=== PATIENT | female | born 1970 | race American Indian/Alaskan Native ===

== ENCOUNTER 2016-06-18 09:53 | Emergency (ER) | payer SELFPAY ==
[2016-06-18 10:03] VITALS: BP 110/73
--- NOTE | 2016-06-18 10:47 | XRay Report ---
LEFT HAND RADIOGRAPHS INDICATION: Left thumb pain and swelling. COMPARISON: None similar. FINDINGS: AP, lateral and oblique left hand radiographs demonstrate normal bones, joints and soft tissues. CONCLUSION: No acute radiographic abnormality. Thank you for the opportunity to participate in this patient's care.
--- NOTE | 2016-06-18 14:57 | Emergency Department Report ---
Entered by TELLO CHOPRA, acting as scribe for KEL GIORDANO PA. Chief Complaint: Fall Stated Complaint: R HAND THUMB PAIN FROM FALL Time Seen by Provider: 06/18/16 10:03 - HPI History of Present Illness: 46 y/o female presents with left thumb pain and abrasions to her right elbow/ left knee after slipping in the rain yesterday. Pt denies LOC or head trauma. Pt notes using icy rub last night with no relief. - ROS Review of Systems: as noted in HPI - Exam Vital Signs: Vital Signs 06/18/16 10:00 Temperature 98.4 F Pulse Rate 75 Respiratory 17 Rate Blood Pressure 110/73 O2 Sat by Pulse 99 Oximetry Physical Exam: General: 46 y/o female in no acute distress. Well-developed, well-nourished. CV: Regular rate and rhythm. No murmurs rubs or gallops. Lungs: Clear to auscultation bilaterally. Abdomen: No tenderness to palpation. No guarding or rebound tenderness. Normal bowel sounds. Mini Neuro: Alert and oriented 3. sensory function intact Musc: patient had tenderness with palpation of the left thumb, decreased ROM due to pain. MSE screening note: Focused history and physical exam performed. Due to findings the following was ordered: ED Medical Decision Making - Radiology Data Radiology results: report reviewed - Medical Decision Making patient was in NAD. x-ray shows no fracture or dislocation thumb spica was applied to the left hand. patient was given information to follow up with payroll and benefits specialist patient was discharged with a prescription for Ibuprofen and tramadol. Patient stated that she is not allergic to ibuprofen and takes it at home. - Differential Diagnosis thumb sprain, thumb fracture, fall ED Disposition for MSE Clinical Impression: Strain of left thumb Qualifiers: Encounter type: initial encounter Qualified Code(s): S66.912A - Strain of unspecified muscle, fascia and tendon at wrist and hand level, left hand, initial encounter Fall Qualifiers: Encounter type: initial encounter Qualified Code(s): W19.XXXA - Unspecified fall, initial encounter Disposition: DISCHARGED TO HOME OR SELFCARE Is pt being admited?: No Does the pt Need Aspirin: No Condition: Good Instructions: Finger Sprain (ED) Additional Instructions: TAKE IBUPROFEN 800MG EVERY 8 HOURS NEEDED FOR PAIN, TAKE TRAMADOL EVERY 6 HOURS NEEDED FOR SEVERE PAIN. Prescriptions: Ibuprofen [Motrin 800 MG tab] 800 mg PO Q8HR PRN #30 tablet PRN Reason: Pain traMADol [Ultram 50 MG tab] 50 mg PO Q6HR PRN #15 tablet PRN Reason: Pain Referrals: PRIMARY CARE,MD [Primary Care Provider] - 3-5 Days DEIRDRE DONOHUE MD [Staff Physician] - 3-5 Days This documentation as recorded by the NAV ryan RYAN,accurately reflects the service I personally performed and the decisions made by GIULIANA valdez FABIOLA N, PA.
== END 2016-06-18 12:18 | disposition home or self-care (01) ==
LOC: ED 09:53
DX: S66.912A Strain of unspecified muscle, fascia and tendon at wrist and hand level, left hand, initial encounter (principal); W01.0XXA Fall on same level from slipping, tripping and stumbling without subsequent striking against object, initial encounter; Y93.89 Activity, other specified; Y99.8 Other external cause status; Y92.89 Other specified places as the place of occurrence of the external cause

== ENCOUNTER 2017-05-31 17:27 | Emergency (ER) | payer SELFPAY ==
[2017-05-31 17:41] VITALS: BP 115/73
[2017-06-01] MEDS ORDERED: FLEXERIL PO ONE (01:16)
[2017-06-01] MEDS ORDERED: FLEXERIL ONE (01:17)
--- NOTE | 2017-06-01 01:43 | Emergency Department Report ---
ED Lower Extremity HPI - General Chief Complaint: Extremity Injury, Lower Stated Complaint: RIGHT LEG PAIN Source: patient, EMS Mode of arrival: Ambulatory Limitations: No Limitations - History of Present Illness Initial Comments: Patient sent from a 3 week she's been having right hip pain radiating down the right thigh. It is of moderate to severe intensity with no relieving factor and aggravated when she lies on the right side MD Complaint: other (right hip pain) Onset/Timin (weeks) -: Gradual Injury: Hip: Right Place: home Severity: moderate Worsens With: other (lying on the right side) - Related Data Previous Rx's Medication Instructions Recorded Last Taken Type Ibuprofen [Motrin 800 MG tab] 800 mg PO Q8HR PRN #30 tablet 06/18/16 Unknown Rx traMADol [Ultram 50 MG tab] 50 mg PO Q6HR PRN #15 tablet 06/18/16 Unknown Rx Cyclobenzaprine HCl [Flexeril 5 MG 5 mg PO TID #30 tab 06/01/17 Unknown Rx TAB] Allergies Allergy/AdvReac Type Severity Reaction Status Date / Time naproxen [From Naprosyn] Allergy Rash Verified 06/18/16 09:58 ED Review of Systems ROS: Stated complaint: RIGHT LEG PAIN Other details as noted in HPI Comment: All other systems reviewed and negative ED Past Medical Hx - Past Medical History Additional medical history: Vaginal delivery x 2 - Surgical History Additional Surgical History: Hardware in right leg and ankle. right knee surgery. TUBAL LIGATION - Social History Smoking Status: Never Smoker Substance Use Type: None - Medications Home Medications: Home Medications Medication Instructions Recorded Confirmed Last Taken Type Ibuprofen [Motrin 800 MG tab] 800 mg PO Q8HR PRN #30 tablet 06/18/16 Unknown Rx traMADol [Ultram 50 MG tab] 50 mg PO Q6HR PRN #15 tablet 06/18/16 Unknown Rx Cyclobenzaprine HCl [Flexeril 5 MG 5 mg PO TID #30 tab 06/01/17 Unknown Rx TAB] ED Physical Exam - General Limitations: No Limitations General appearance: alert, in no apparent distress - Head Head exam: Present: atraumatic, normocephalic - Eye Eye exam: Present: normal appearance - ENT ENT exam: Present: mucous membranes moist - Neck Neck exam: Present: normal inspection - Respiratory Respiratory exam: Present: normal lung sounds bilaterally. Absent: respiratory distress - Cardiovascular Cardiovascular Exam: Present: regular rate, normal rhythm. Absent: systolic murmur, diastolic murmur, rubs, gallop - GI/Abdominal GI/Abdominal exam: Present: soft, normal bowel sounds. Absent: tenderness - Rectal Rectal exam: Present: deferred - Extremities Exam Extremities exam: Present: normal inspection, other (ttp of the right hip) - Back Exam Back exam: Present: normal inspection - Neurological Exam Neurological exam: Present: alert, oriented X3 - Psychiatric Psychiatric exam: Present: normal affect, normal mood - Skin Skin exam: Present: warm, dry, intact, normal color. Absent: rash ED Course Vital Signs 05/31/17 17:39 Temperature 98 F Pulse Rate 65 Respiratory 18 Rate Blood Pressure 115/73 O2 Sat by Pulse 100 Oximetry Critical care attestation.: If time is entered above; I have spent that time in minutes in the direct care of this critically ill patient, excluding procedure time. ED Disposition Clinical Impression: Hip pain Disposition: - TO HOME OR SELFCARE Is pt being admited?: No Does the pt Need Aspirin: No Condition: Stable Instructions: Arthralgia (ED) Prescriptions: Cyclobenzaprine HCl [Flexeril 5 MG TAB] 5 mg PO TID #30 tab Referrals: PEDRITO WALDEN MD [Primary Care Provider] - 3-5 Days Time of Disposition: 01:44 Print Language: DIVEHI
== END 2017-06-01 01:58 | disposition home or self-care (01) ==
LOC: ED 17:27
DX: M25.551 Pain in right hip (principal); Z98.51 Tubal ligation status; Z88.6 Allergy status to analgesic agent
CPT/HCPCS: 99283

== ENCOUNTER 2017-09-02 10:01 | Emergency (ER) | payer SELFPAY ==
[2017-09-02] MEDS ORDERED: NORCO 5/325 PO ONE (13:06)
--- NOTE | 2017-09-02 13:06 | Emergency Department Report ---
ED Fall HPI - General Chief Complaint: Fall Stated Complaint: ARM/LEG PAIN Time Seen by Provider: 09/02/17 12:13 Source: patient, family Mode of arrival: Wheelchair - History of Present Illness Initial Comments: This is a 47-year-old female reports that she slipped and fell and injured her left hip and left elbow this morning. She is complaining of left arm and left hip pain. Pain is 9 out of 10 and achy. Worse with movement and better with rest. No medication taken prior to coming to the emergency room. Patient came to the emergency room via EMS. Denies any numbness or tingling to extremities. Denies any head injury or back injury. Denies any back pain, neck pain or headache. MD Complaint: fall, other (left hip and left elbow injury) -: This morning Fall From: standing When Fall Occurred: 1-3 hours [employer] FILL[employer] Fall Witnessed: yes, by bystander Place Fall Occurred: street Loss of Consciousness: none Prolonged Down Time?: no Symptoms Prior to Fall: none Location: pelvis (left hip pain) Location - Extremities: Left: Elbow (pain and present) Severity: severe Severity scale (0 -10): 9 Quality: aching Context: tripped/slipped Associated Symptoms: denies: headache, neck pain, numbness, weakness, chest paint, shortness of breath, abdominal pain, hematuria, unable to walk, lightheaded, vertigo, confusion - Related Data Previous Rx's Medication Instructions Recorded Last Taken Type Ibuprofen [Motrin 800 MG tab] 800 mg PO Q8HR PRN #30 tablet 06/18/16 Unknown Rx Cyclobenzaprine HCl [Flexeril 5 MG 5 mg PO TID #30 tab 06/01/17 Unknown Rx TAB] traMADol [Ultram 50 MG tab] 50 mg PO Q6HR PRN 12 Days #15 09/02/17 Unknown Rx tablet Allergies Allergy/AdvReac Type Severity Reaction Status Date / Time naproxen [From Naprosyn] Allergy Rash Verified 09/02/17 10:27 ED Review of Systems ROS: Stated complaint: ARM/LEG PAIN Other details as noted in HPI Constitutional: denies: chills, fever Eyes: denies: eye discharge ENT: denies: ear pain, throat pain Respiratory: denies: cough, shortness of breath, SOB with exertion, SOB at rest , wheezing Cardiovascular: denies: chest pain, palpitations, edema, syncope Gastrointestinal: denies: abdominal pain, nausea, vomiting, diarrhea Genitourinary: denies: urgency, dysuria, discharge Musculoskeletal: arthralgia. denies: back pain, joint swelling, myalgia Skin: rash (abrasion left elbow). denies: lesions Neurological: denies: headache, weakness, numbness, paresthesias, confusion, abnormal gait, vertigo ED Past Medical Hx - Past Medical History Previous Medical History?: No Additional medical history: Vaginal delivery x 2 - Surgical History Past Surgical History?: No Additional Surgical History: Hardware in right leg and ankle. right knee surgery. TUBAL LIGATION - Family History Family history: hypertension - Social History Smoking Status: Never Smoker Substance Use Type: None - Medications Home Medications: Home Medications Medication Instructions Recorded Confirmed Last Taken Type Ibuprofen [Motrin 800 MG tab] 800 mg PO Q8HR PRN #30 tablet 06/18/16 Unknown Rx Cyclobenzaprine HCl [Flexeril 5 MG 5 mg PO TID #30 tab 06/01/17 Unknown Rx TAB] traMADol [Ultram 50 MG tab] 50 mg PO Q6HR PRN 12 Days #15 09/02/17 Unknown Rx tablet ED Physical Exam - General Limitations: No Limitations General appearance: alert, in no apparent distress - Head Head exam: Present: atraumatic, normocephalic, normal inspection - Eye Eye exam: Present: normal appearance, PERRL, EOMI. Absent: nystagmus, periorbital swelling, periorbital tenderness Pupils: Present: normal accommodation - ENT ENT exam: Present: normal exam, normal orophraynx, mucous membranes moist, TM's normal bilaterally, normal external ear exam - Neck Neck exam: Present: normal inspection, full ROM. Absent: tenderness, lymphadenopathy - Respiratory Respiratory exam: Present: normal lung sounds bilaterally. Absent: respiratory distress, chest wall tenderness - Cardiovascular Cardiovascular Exam: Present: regular rate, normal rhythm, normal heart sounds. Absent: systolic murmur, diastolic murmur - GI/Abdominal GI/Abdominal exam: Present: soft, normal bowel sounds. Absent: distended, tenderness, guarding, rebound, rigid - Extremities Exam Extremities exam: Present: normal inspection, full ROM, normal capillary refill , other (no clubbing, cyanosis or edema. +2 pulses to all extremities and no neurovascular compromise.). Absent: tenderness, pedal edema, joint swelling, calf tenderness - Expanded Upper Extremity Exam Left General: Present: abrasion (left elbow). Absent: normal inspection Shoulder Exam: Present: normal inspection, full ROM. Absent: tenderness, swelling, abrasion, laceration, ecchymosis, deformity, crepidus, dislocation, erythema, tenderness over AC joint Upper Arm exam: Present: normal inspection, full ROM. Absent: tenderness, swelling, abrasion, laceration, ecchymosis, deformity, crepidus, dislocation, erythema Elbow exam: Present: normal inspection, full ROM (range of motion but reports pain with flexion and extension of elbow), tenderness (left elbow), abrasion ( abrasion to left elbow). Absent: swelling, laceration, ecchymosis, deformity, crepidus, dislocation, erythema, effusion, pain w/ pronation/supination, tenderness over radial head Forearm Wrist exam: Present: normal inspection, full ROM. Absent: tenderness, swelling, abrasion, laceration, ecchymosis, deformity, crepidus, dislocation, erythema, tenderness over anatomical snuff box, pain with axial thumb loading Hand Wrist exam: Present: normal inspection, full ROM. Absent: tenderness, swelling, abrasion, laceration, ecchymosis, deformity, crepidus, dislocation, erythema, amputation, nail avulsion, subungual hematoma Neuro motor exam: Present: wrist extension intact, thumb opposition intact, thumb IP flexion intact, thumb adduction intact, fingers 2-5 abduction intact Neurosensory exam: Present: 2-point discrimination, radial nerve intact, ulnar nerve intact, median nerve intact Vascular: Present: normal capillary refill, radial pulse, brachial pulse, ulnar pulse. Absent: vascular compromise, Pallo, pulse deficit radial art, pulse deficit ulnar art, pulse deficit brachial art - Back Exam Back exam: Present: normal inspection, full ROM, other (relates without any difficulties). Absent: tenderness, CVA tenderness (R), CVA tenderness (L), muscle spasm, paraspinal tenderness, vertebral tenderness, rash noted - Neurological Exam Neurological exam: Present: alert, oriented X3, normal gait, reflexes normal, other (no focal neurological deficits). Absent: motor sensory deficit - Psychiatric Psychiatric exam: Present: normal affect, normal mood - Skin Skin exam: Present: warm, dry, intact, normal color, abrasion (abrasion to left elbow) ED Course Vital Signs 09/02/17 09/02/17 10:27 13:11 Temperature 98.6 F Pulse Rate 72 Respiratory 18 16 Rate Blood Pressure 109/79 O2 Sat by Pulse 98 Oximetry - Reevaluation(s) Reevaluation #1: 09/02/17 14:59 Frederick 06/3251 tablets by mouth given in the emergency room for pain which controlled her pain. Tetanus vaccine is up-to-date per patient ED Medical Decision Making - Radiology Data Radiology results: report reviewed Left hip x-ray and Patient: ARIANNE RAI MR#: [id number] : 1970 Acct:[id number] Age/Sex: 47 / F ADM Date: 09/02/17 Loc: ED Attending Dr: Ordering Physician: MARILYN BOOKER Date of Service: 09/02/17 Procedure(s): XR hip 2-3V LT Accession Number(s): [id number] cc: MARILYN BOOKER Fluoro Time In Minutes: LEFT HIP, 2 views: History: Left hip pain after fall. The bony architecture is intact without evidence of fracture or dislocation. No significant soft tissue abnormality is seen. IMPRESSION: Normal left hip. Transcribed By: TTR Dictated By: ANTIONETTE WERNER JR, MD Electronically Authenticated By: ANTIONETTE WERNER JR, MD Signed Date/Time: 09/02/171357 DD/ 57 TD/TT: 09/02/178 Patient: ARIANNE RAI MR#: [id number] : 1970 Acct:[id number] Age/Sex: 47 / F ADM Date: 09/02/17 Loc: ED Attending Dr: Ordering Physician: MARILYN BOOKER Date of Service: 09/02/17 Procedure(s): XR hip 2-3V LT Accession Number(s): [id number] cc: MARILYN BOOKER Fluoro Time In Minutes: LEFT HIP, 2 views: History: Left hip pain after fall. The bony architecture is intact without evidence of fracture or dislocation. No significant soft tissue abnormality is seen. IMPRESSION: Normal left hip. Transcribed By: TTR Dictated By: ANTIONETTE WERNER JR, MD Electronically Authenticated By: ANTIONETTE WERNER JR, MD Signed Date/Time: 09/02/171357 DD/ 57 TD/TT: 09/02/171357 - Medical Decision Making This is a 47-year-old female here after falling accidentally. She is here to be seen after sustaining an injury to her left hip and left elbow left elbow abrasion. Tetanus vaccine is up-to-date. I saw and examined patient. She has a small abrasion to her left elbow. She is tender to palpate the left hip and left elbow with full range of motion to all extremities except she has pain with flexion and extension of her left elbow and active and passive range of motion of left hip. Patient had x-ray of left elbow and left hip which was dictated by radiologist and report reviewed by myself. X-ray of left hip and left elbow was normal. Patient tetanus vaccine is up-to-date and pain is controlled. I discussed x-ray report with patient and she voiced understanding. A/P 1:Accidental fall fall-she is stable 2: Arthralgia multiple sites-x-ray of left hip and left elbow negative findings. Patient given Percocet 5/325 2 tablets by mouth for relief of pain and will discharge home and Ultram 3: Abrasion left elbow-tetanus vaccine up-to-date. Neosporin ointment placed the site. Educated on Rice therapy, medication, x-ray report and diagnosis. She voiced understanding. Patient discharged home in stable condition. Vital signs are stable she is afebrile. She says she is feeling better and pain has resolved. Discharge home to follow up with her primary care physician in 2-3 days and if she does not have one to follow up at [facility] and she voiced understanding. discharged home a prescription for Ultram - Differential Diagnosis fracture, contusion, dislocation, MSK pain Critical care attestation.: If time is entered above; I have spent that time in minutes in the direct care of this critically ill patient, excluding procedure time. ED Disposition Clinical Impression: Arthralgia of multiple sites Accidental fall Qualifiers: Encounter type: initial encounter Qualified Code(s): W19.XXXA - Unspecified fall, initial encounter Abrasion of left elbow Qualifiers: Encounter type: initial encounter Qualified Code(s): S50.312A - Abrasion of left elbow, initial encounter Disposition: TO HOME OR SELFCARE Is pt being admited?: No Does the pt Need Aspirin: No Condition: Stable Instructions: Abrasion (ED), Fall Prevention (ED), Arthralgia (ED) Additional Instructions: Follow-up with primary care physician in 2-3 days Take Ultram for pain the patient not drive or operate heavy machinery while taking this medication as this causes drowsiness Prescriptions: traMADol [Ultram 50 MG tab] 50 mg PO Q6HR PRN 12 Days #15 tablet PRN Reason: Pain Referrals: PRIMARY CARE,MD [Primary Care Provider] - 2-3 Days [facility] [Outside] - 2-3 Days Forms: Work/School Release Form(ED)
--- NOTE | 2017-09-02 14:21 | XRay Report ---
LEFT ELBOW, 3 views: History: left elbow pain. The bony architecture is intact without evidence of fracture or dislocation. No significant soft tissue abnormality is seen. IMPRESSION: Normal left elbow.
--- NOTE | 2017-09-02 14:21 | XRay Report ---
LEFT HIP, 2 views: History: Left hip pain after fall. The bony architecture is intact without evidence of fracture or dislocation. No significant soft tissue abnormality is seen. IMPRESSION: Normal left hip.
[2017-09-02 15:27] VITALS: BP 122/64
== END 2017-09-02 15:23 | disposition home or self-care (01) ==
LOC: ED 10:01
DX: S50.312A Abrasion of left elbow, initial encounter (principal); M25.552 Pain in left hip; I10 Essential (primary) hypertension; Z98.51 Tubal ligation status; Z88.6 Allergy status to analgesic agent; W01.0XXA Fall on same level from slipping, tripping and stumbling without subsequent striking against object, initial encounter; Y93.89 Activity, other specified; Y99.8 Other external cause status; Y92.89 Other specified places as the place of occurrence of the external cause
CPT/HCPCS: 99283

== ENCOUNTER 2017-09-08 14:24 | Emergency (ER) | payer SELFPAY ==
[2017-09-08 15:18] VITALS: BP 117/79
--- NOTE | 2017-09-08 16:39 | XRay Report ---
FINAL REPORT PROCEDURE: XR MANDIBLE < 4V TECHNIQUE: Mandible complete, minimum of 4 views, including PA, lateral, [place], and both oblique projections. HISTORY: Trauma. Pain. Swelling. COMPARISON: No prior studies are available for comparison. FINDINGS: No fracture or radiopaque foreign body visualized. No dislocation is identified. Density appears normal. IMPRESSION: Negative exam. No fracture or dislocation visualized. If further evaluation is clinically indicated CT scan could be performed.
[2017-09-08] MEDS ORDERED: NACL 0.9% 1000 ML 1,000 ML IV ONE (21:10)
[2017-09-08] MEDS ORDERED: MORPHINE IV ONE (21:10)
[2017-09-08] MEDS ORDERED: CLEOCIN 600 MG/50 mL 600 MG/50 ML BAG IV ONE (21:12)
[2017-09-08 21:28] LABS: Basophils % (Auto) 0.2 % (0.0-1.8); Eosinophils % (Auto) 0.7 % (0.0-4.3); Hemoglobin 10.9 gm/dl (10.1-14.3); Lymphocytes # (Auto) 1.4 K/mm3 (1.2-5.4); Lymphocytes % (Auto) 21.9 % (13.4-35.0); Mean Corpuscular HGB Conc 33 % (30-34); Mean Corpuscular Hemoglobin 30 pg (28-32); Mean Corpuscular Volume 90 fl (79-97); Monocytes # (Auto) 0.6 K/mm3 (0.0-0.8); Monocytes % (Auto) 8.8 % (0.0-7.3); Platelet Count 235 K/mm3 (140-440); Red Blood Count 3.68 M/mm3 (3.65-5.03); Red Cell Distribution Width 14.3 % (13.2-15.2)
[2017-09-08 21:38] LABS: BUN/Creatinine Ratio 20; Blood Urea Nitrogen 10 mg/dL (7-17); Calcium 8.7 mg/dL (8.4-10.2); Hemolysis Index 19
[2017-09-08] MEDS ORDERED: BOOSTRIX IM ONE (23:21)
--- NOTE | 2017-09-08 23:23 | Emergency Department Report ---
<AKHIL BENITEZ - Last Filed: 09/08/17 23:19> ED ENT HPI - General Chief complaint: Dental/Oral Stated complaint: SWOLLEN JAW Time Seen by Provider: 09/08/17 20:33 Source: patient Mode of arrival: Ambulatory Limitations: No Limitations - History of Present Illness Initial comments: 47-year-old female presents with complaint of right upper lip pain and right facial pain. As per patient she was walking down a street were playing a game and ran into her accidentally. As per patient one of her right upper incisor was knocked out and she noticed blood coming out of her mouth. This occurred approximately 3 days ago per patient. Patient denies loss of consciousness states she was briefly dazed after incident. Denies sustaining any other injuries. Patient is currently awake alert and oriented 3 with visible swelling at the right lateral canthus of her lips. Some erythema surrounding this area noted. Patient states that when she touches the right side of her face is quite painful. MD complaint: tooth pain Onset/Timin -: days(s) Location: tooth # 1 - This tooth is missing Severity: moderate Severity scale (0 -10): 7 Quality: aching Consistency: constant Improves with: none Associated Symptoms: toothache - Related Data Previous Rx's Medication Instructions Recorded Last Taken Type Ibuprofen [Motrin 800 MG tab] 800 mg PO Q8HR PRN #30 tablet 06/18/16 Unknown Rx Cyclobenzaprine HCl [Flexeril 5 MG 5 mg PO TID #30 tab 06/01/17 Unknown Rx TAB] traMADol [Ultram 50 MG tab] 50 mg PO Q6HR PRN 12 Days #15 09/02/17 Unknown Rx tablet Chlorhexidine Mouthwash [Peridex] 15 ml MM BID #1 bottle 09/09/17 Unknown Rx Clindamycin [Clindamycin CAP] 300 mg PO Q6H #40 capsule 09/09/17 Unknown Rx traMADol [Ultram] 50 mg PO Q6HR PRN #15 tablet 09/09/17 Unknown Rx Allergies Allergy/AdvReac Type Severity Reaction Status Date / Time naproxen [From Naprosyn] Allergy Rash Verified 09/02/17 10:27 ED Dental HPI - General Chief complaint: Dental/Oral Stated complaint: SWOLLEN JAW Time Seen by Provider: 09/08/17 20:33 Source: patient Mode of arrival: Ambulatory Limitations: No Limitations - Related Data Previous Rx's Medication Instructions Recorded Last Taken Type Ibuprofen [Motrin 800 MG tab] 800 mg PO Q8HR PRN #30 tablet 06/18/16 Unknown Rx Cyclobenzaprine HCl [Flexeril 5 MG 5 mg PO TID #30 tab 06/01/17 Unknown Rx TAB] traMADol [Ultram 50 MG tab] 50 mg PO Q6HR PRN 12 Days #15 09/02/17 Unknown Rx tablet Chlorhexidine Mouthwash [Peridex] 15 ml MM BID #1 bottle 09/09/17 Unknown Rx Clindamycin [Clindamycin CAP] 300 mg PO Q6H #40 capsule 09/09/17 Unknown Rx traMADol [Ultram] 50 mg PO Q6HR PRN #15 tablet 09/09/17 Unknown Rx Allergies Allergy/AdvReac Type Severity Reaction Status Date / Time naproxen [From Naprosyn] Allergy Rash Verified 09/02/17 10:27 ED Review of Systems ROS: Stated complaint: SWOLLEN JAW Other details as noted in HPI Constitutional: denies: chills, fever Eyes: denies: eye pain, eye discharge, vision change ENT: as per HPI (facial pain and dental pain right upper mouth), dental pain. denies: ear pain, throat pain Respiratory: denies: cough, shortness of breath, wheezing Cardiovascular: denies: chest pain, palpitations Endocrine: no symptoms reported Gastrointestinal: denies: abdominal pain, nausea, diarrhea Genitourinary: denies: urgency, dysuria, discharge Musculoskeletal: denies: back pain, joint swelling, arthralgia Skin: denies: rash, lesions Neurological: denies: headache, weakness, paresthesias Psychiatric: denies: anxiety, depression Hematological/Lymphatic: denies: easy bleeding, easy bruising ED Past Medical Hx - Past Medical History Additional medical history: Vaginal delivery x 2 - Surgical History Additional Surgical History: Hardware in right leg and ankle. right knee surgery. TUBAL LIGATION - Social History Smoking Status: Never Smoker Substance Use Type: None - Medications Home Medications: Home Medications Medication Instructions Recorded Confirmed Last Taken Type Ibuprofen [Motrin 800 MG tab] 800 mg PO Q8HR PRN #30 tablet 06/18/16 Unknown Rx Cyclobenzaprine HCl [Flexeril 5 MG 5 mg PO TID #30 tab 06/01/17 Unknown Rx TAB] traMADol [Ultram 50 MG tab] 50 mg PO Q6HR PRN 12 Days #15 09/02/17 Unknown Rx tablet Chlorhexidine Mouthwash [Peridex] 15 ml MM BID #1 bottle 09/09/17 Unknown Rx Clindamycin [Clindamycin CAP] 300 mg PO Q6H #40 capsule 09/09/17 Unknown Rx traMADol [Ultram] 50 mg PO Q6HR PRN #15 tablet 09/09/17 Unknown Rx ED Physical Exam - General Limitations: No Limitations General appearance: alert, in no apparent distress - Expanded Head Exam Expanded Head exam: Present: contusion, general tenderness 1 - Tenderness and swelling here with surrounding erythema - Eye Eye exam: Present: normal appearance - ENT ENT exam: Present: mucous membranes moist - Expanded ENT Exam Expanded Teeth exam: Present: dental tenderness # 1 - Fractured 2 - Other (swelling and possible abscess here) - Neck Neck exam: Present: normal inspection - Respiratory Respiratory exam: Present: normal lung sounds bilaterally. Absent: respiratory distress - Cardiovascular Cardiovascular Exam: Present: regular rate, normal rhythm. Absent: systolic murmur, diastolic murmur, rubs, gallop - GI/Abdominal GI/Abdominal exam: Present: soft, normal bowel sounds - Extremities Exam Extremities exam: Present: normal inspection - Back Exam Back exam: Present: normal inspection - Neurological Exam Neurological exam: Present: alert, oriented X3 - Psychiatric Psychiatric exam: Present: normal affect, normal mood - Skin Skin exam: Present: warm, dry, intact, normal color. Absent: rash ED Course Vital Signs 09/08/17 15:12 Temperature 98.9 F Pulse Rate 82 Respiratory 16 Rate Blood Pressure 117/79 O2 Sat by Pulse 99 Oximetry ED Medical Decision Making - Lab Data Result diagrams: 09/08/17 21:19 09/08/17 21:19 - Medical Decision Making A/P: Facial cellulitis/abscess versus mandibular fracture, dental fracture 1-CT scan of face with contrast ordered to assess for abscess and jaw fracture 2-clindamycin 600 mg IV given, when necessary analgesics, nothing by mouth for now, IV fluid 3-pt signed out to МАРИЯ Agustin for f.u of CT and further management Critical care attestation.: If time is entered above; I have spent that time in minutes in the direct care of this critically ill patient, excluding procedure time. ED Disposition Clinical Impression: Infected dental carries, Dental abscess Disposition: DC-01 TO HOME OR SELFCARE Condition: Stable Instructions: Dental Abscess (ED), Dental Caries (ED) Prescriptions: Chlorhexidine Mouthwash [Peridex] 15 ml MM BID #1 bottle Clindamycin [Clindamycin CAP] 300 mg PO Q6H #40 capsule traMADol [Ultram] 50 mg PO Q6HR PRN #15 tablet PRN Reason: Pain Referrals: [facility] [Outside] - 3-5 Days Forms: Work/School Release Form(ED) <ELIOT AGUSTIN - Last Filed: 09/09/17 00:21> ED Medical Decision Making - Lab Data Result diagrams: 09/08/17 21:19 09/08/17 21:19 - Medical Decision Making Patient now refuses CT scan facial bone x-ray shows no fracture patient given clindamycin 600 IV and plan dc to home with clindamycin po, Peridex, mouth rinse , ultram prn pain pt will follow up with [facility] dental tomorrow, pt verbalized agreement and understanding of same. for dc to home in stable in stable condtion at this time ED Disposition Is pt being admited?: No Does the pt Need Aspirin: No Time of Disposition: 00:21
== END 2017-09-09 00:45 | disposition home or self-care (01) ==
LOC: ED 14:24
DX: K02.9 Dental caries, unspecified (principal); K04.7 Periapical abscess without sinus; Z98.51 Tubal ligation status; Z88.6 Allergy status to analgesic agent
CPT/HCPCS: 36415; 70100; 80048; 84703; 85025; 90471; 90715; 96365; 96366; 96375; 99285; J2270; J7030

== ENCOUNTER 2017-10-12 22:29 | Emergency (ER) | payer SELFPAY ==
[2017-10-12 22:57] LABS: Basophils % (Auto) 0.3 % (0.0-1.8); Eosinophils # (Auto) 0.1 K/mm3 (0.0-0.4); Eosinophils % (Auto) 1.2 % (0.0-4.3); Hemoglobin 11.2 gm/dl (10.1-14.3); Lymphocytes # (Auto) 1.3 K/mm3 (1.2-5.4); Lymphocytes % (Auto) 25.8 % (13.4-35.0); Mean Corpuscular HGB Conc 33 % (30-34); Mean Corpuscular Hemoglobin 29 pg (28-32); Mean Corpuscular Volume 88 fl (79-97); Monocytes # (Auto) 0.5 K/mm3 (0.0-0.8); Monocytes % (Auto) 9.6 % (0.0-7.3); Platelet Count 300 K/mm3 (140-440); Red Blood Count 3.86 M/mm3 (3.65-5.03); Red Cell Distribution Width 14.5 % (13.2-15.2)
[2017-10-12 23:42] LABS: BUN/Creatinine Ratio 21; Blood Urea Nitrogen 15 mg/dL (7-17); Calcium 9.1 mg/dL (8.4-10.2); Hemolysis Index 0
[2017-10-13 01:08] LABS: Bacteria,Urine 4+ /HPF (Negative); Bilirubin,Urine NEG (Negative); Blood,Urine LG (Negative); Color,Urine Yellow (Yellow); Mucus,Urine FEW /HPF; Protein,Urine <15 mg/dL mg/dL (Negative); Urobilinogen,Urine < 2.0 mg/dL (<2.0)
[2017-10-13 01:11] LABS: Amphetamine Screen,Urine PRESUMPTIVE NEGATIVE; Benzodiazepines Screen,Urine PRESUMPTIVE NEGATIVE; Cannabinoid Screen,Urine PRESUMPTIVE NEGATIVE; Cocaine Screen,Urine PRESUMPTIVE NEGATIVE; Methadone Screen,Urine PRESUMPTIVE NEGATIVE; Opiate Screen,Urine PRESUMPTIVE NEGATIVE
[2017-10-13] MEDS ORDERED: AMBIEN PO PRN (03:16)
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
[2017-10-13] MEDS ORDERED: TYLENOL ONE (14:36)
[2017-10-13] MEDS ORDERED: TYLENOL PO ONE (14:37)
[2017-10-13] MEDS: REMERON PO SCH (22:25)
--- NOTE | 2017-10-14 13:56 | Progress Note ---
Subjective - Reason for Consult Consult date: 10/14/17 Reason for consult: Psychiatry Follow-up - Chief Complaint Chief complaint: "Hello" 47-year-old female presenting with the chief complaint suicidal ideation. Today the patient is calm and cooperative during the assessment. She stated that she have done "some reflecting" reference her life and do feel like living is important. She stated that the medication "must be working." She denies SI/HI's and AVH's. She denies any side effects of her medication. Mental Status Exam - Vital signs Last Vital Signs Temp 98.6 F 10/14/17 10:00 Pulse 75 10/14/17 10:00 Resp 18 10/14/17 10:00 BP 104/74 10/14/17 10:00 Pulse Ox 100 10/14/17 10:00 - Exam Narrative exam: MSE: Appearance: calm, cooperative Behavior: regular eye contact Speech: regular rate and low tone Mood: "okay" Affect: congruent to mood Thought Process: intact Thought Content: denies SI/HI's and AVH's Motor Activity: lying in bed Cognition: A/O x 3 Insight: fair Judgment: fair Assessment and Plan Impression: MDD, Severe type. Today the patient is calm and cooperative during the assessment. UDS is negative. DDx: R/O Bipolar DO Recommendation/Plan: Reevaluate 1013 in 24 hours to determine proper dispo.. Continue Remeron 15 mg PO HS for depression. Discussed possible suicidality/ medication induced keaton with patient reference Remeron. Discussed generalized coping skills with the patient.
[2017-10-14] MEDS: REMERON PO SCH (22:13)
--- NOTE | 2017-10-15 14:35 | Progress Note ---
Subjective - Reason for Consult Consult date: 10/15/17 Reason for consult: Psychiatric Follow-up Evaluation - Chief Complaint Chief complaint: "Good" Patient is a 47-year-old female who presents with the chief complaint suicidal ideation. Today the patient is calm and cooperative during the assessment. She states, " I've been feeling okay. I talked to my daughter and grandchild last night. I think my depression was related to lack of communication. My phone was turned off. My mom paid to have my phone turned back on." She reports decrease depression. She endorses good sleep and appetite. She denies SI/HI, A/VH, and delusions. Patient is medication compliant. She denies any side effects of her medication. Mental Status Exam - Vital signs Last Vital Signs Temp 98.7 F 10/15/17 10:00 Pulse 87 10/15/17 10:00 Resp 18 10/15/17 10:00 BP 111/70 10/15/17 10:00 Pulse Ox 100 10/15/17 10:00 - Exam Narrative exam: Mental Status Exam General Appearance: Causally Dressed-hospital gown Eye Contact: Intermiittent Orientation: Alert and oriented x 4 (person, place, time, situation) Attitude/Behavior: Cooperative Sensorium: Clear Psychomotor & Musculoskeletal Activity: Ambulatory Mood: "Okay" Anxious. Affect: Congruent with mood Speech/Language: Normal rate and tone Thought Processes: Circumstantial Thought Content: Reality oriented. Impoverished Perception: Pt denies A/V/T hallucinations Concentration/Attention: Impaired Suicidal Ideations/Plan: Patient denies. Homicidal Ideations/Plan: Patient denies. Judgment: Fair Insight: Fair Assessment and Plan Impression: MDD, Severe type. Today the patient is calm and cooperative during the assessment. UDS is negative. Patient denies SI/HI, A/VH, and delusions. DDx: R/O Bipolar DO Recommendation/Plan: 1. Will reevaluate 1013 in 24 hours to determine proper dispo. 2. Continue Remeron 15 mg PO HS for depression. Discussed possible suicidality/ medication induced keaton with patient reference Remeron. Discussed generalized coping skills with the patient. 3. Will monitor mood, sleep, appetite, compliance, and side effects.
[2017-10-15] MEDS: REMERON PO SCH (22:38)
--- NOTE | 2017-10-16 11:47 | Progress Note ---
Subjective - Reason for Consult Consult date: 10/16/17 Reason for consult: Psychiatry Follow-up - Chief Complaint Chief complaint: "How are you" Patient is a 47-year-old female who presents with the chief complaint suicidal ideation. Today the patient is calm and cooperative during the assessment. She stated that she feel better "mentally." She stated that she talked with her family last night and look forward to being discharged. She stated that she plan to follow up with outpatient psy services. She denies SI/HI's and AVH's. She denies any side effects of her medication. Mental Status Exam - Vital signs Last Vital Signs Temp 98.6 F 10/15/17 21:00 Pulse 70 10/15/17 21:00 Resp 18 10/15/17 21:00 BP 108/73 10/15/17 21:00 Pulse Ox 100 10/15/17 21:00 - Exam Narrative exam: MSE: Appearance: calm, cooperative Behavior: regular eye contact Speech: regular rate and low tone Mood: "okay" Affect: congruent to mood Thought Process: intact Thought Content: denies SI/HI's and AVH's Motor Activity: lying in bed Cognition: A/O x 3 Insight: appropriate Judgment: appropriate Assessment and Plan Impression: MDD, Severe type. Today the patient is calm and cooperative during the assessment. UDS is negative. The patient is no threat to self. DDx: R/O Bipolar DO Recommendation/Plan: Rescind 1013. Continue Remeron 15 mg PO HS for depression. Discussed possible suicidality/medication induced keaton with patient reference Remeron. Discussed generalized coping skills with the patient. The patient can follow up with [facility].
[2017-10-16 12:14] VITALS: BP 104/72
== END 2017-10-16 15:43 | disposition home or self-care (01) ==
LOC: ED 22:29 → EEVIPCON 22:29 → ED 10-16 15:43
DX: R45.851 Suicidal ideations (principal); F32.9 Major depressive disorder, single episode, unspecified; Z98.51 Tubal ligation status
CPT/HCPCS: 36415; 80048; 80307; 81001; 85025; 99284; G0480; 80320; 99285

== ENCOUNTER 2018-02-18 18:23 | Emergency (ER) | payer SELFPAY ==
[2018-02-18 18:32] VITALS: BP 117/70
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
[2018-02-18] MEDS ORDERED: TORADOL IM ONE (21:52)
--- NOTE | 2018-02-18 22:35 | XRay Report ---
FINAL REPORT EXAM: XR SCAPULA RT HISTORY: right scapular pain TECHNIQUE: AP and lateral views of the right scapula PRIORS: None. FINDINGS: There is no evidence for acute fracture or dislocation. No soft tissue swelling or radiopaque foreign bodies are seen. Bony mineralization is normal and joint spaces are maintained. IMPRESSION: No acute bony or soft tissue abnormality noted.
== END 2018-02-18 21:58 | disposition home or self-care (01) ==
LOC: ED 18:23
DX: S20.221A Contusion of right back wall of thorax, initial encounter (principal); G43.909 Migraine, unspecified, not intractable, without status migrainosus; F32.9 Major depressive disorder, single episode, unspecified; X58.XXXA Exposure to other specified factors, initial encounter; Y93.89 Activity, other specified; Y92.89 Other specified places as the place of occurrence of the external cause; Y99.8 Other external cause status
CPT/HCPCS: 73010; 96372; 99283; J1885

== ENCOUNTER 2018-02-26 15:44 | Emergency (ER) | payer SELFPAY ==
--- NOTE | 2018-02-26 20:33 | Emergency Department Report ---
- General Chief Complaint: Wound/Laceration Stated Complaint: BLEEDING BELLY BUTTON/SMELLY Time Seen by Provider: 02/26/18 20:13 Source: patient Mode of arrival: Ambulatory Limitations: No Limitations - History of Present Illness Initial Comments: 47-year-old -O[place]i female to emergency Department complaining of a wound to her belly button which she was seen for 1-2 weeks ago and treated with oral medication. Advised to return to the department should she progression of the symptoms or any discharge. She states that she has developed some mild drainage from the wound with occasional blood-tinged sensation elbow. She has been picking at. She also tenderness present. Reports no abdominal pain, no nausea, vomiting, no diarrhea, fever, chills, sweats, chest pain, -: Gradual Location: abdomen Place: home Patient Tetanus UTD: No Context: accidental Associated Symptoms: none. denies: suspect foreign body present, unable to move injured part, nausea/vomiting, fever - Related Data Previous Rx's Medication Instructions Recorded Last Taken Type Ibuprofen [Motrin 800 MG tab] 800 mg PO Q8HR PRN #30 tablet 06/18/16 Unknown Rx traMADol [Ultram 50 MG tab] 50 mg PO Q6HR PRN 12 Days #15 09/02/17 Unknown Rx tablet Chlorhexidine Mouthwash [Peridex] 15 ml MM BID #1 bottle 09/09/17 Unknown Rx Clindamycin [Clindamycin CAP] 300 mg PO Q6H #40 capsule 09/09/17 Unknown Rx traMADol [Ultram] 50 mg PO Q6HR PRN #15 tablet 09/09/17 Unknown Rx Tizanidine HCl [Zanaflex] 4 mg PO TID PRN #12 capsule 09/25/17 Unknown Rx traMADol [Ultram 50 MG tab] 50 mg PO Q4HR PRN #12 tablet 09/25/17 Unknown Rx Ibuprofen [Motrin 600 MG tab] 600 mg PO Q8H PRN #15 tablet 11/25/17 Unknown Rx Butalb/Acetaminophen/Caffeine 1 cap PO Q6HR PRN #15 cap 11/29/17 Unknown Rx [Fioricet 50-300-40 mg CAP] Methocarbamol [Robaxin-750] 750 mg PO TID #20 tablet 01/11/18 Unknown Rx predniSONE [Deltasone] 20 mg PO QDAY #7 tab 01/11/18 Unknown Rx Cyclobenzaprine [Flexeril 10mg] 10 mg PO Q12H PRN #14 tablet 01/19/18 Unknown Rx cephALEXin [Keflex] 500 mg PO Q8HR 7 Days #14 cap 01/19/18 Unknown Rx traMADol [Ultram 50 MG tab] 50 mg PO Q6HR PRN #20 tablet 01/19/18 Unknown Rx Acetaminophen [Tylenol Extra 1,000 mg PO QID PRN #60 tablet 01/26/18 Unknown Rx Strength] Diclofenac Sodium [Voltaren] 1 applicatio TP TID PRN #1 tube 01/26/18 Unknown Rx Cyclobenzaprine [Flexeril 10 MG 10 mg PO TID PRN #10 tablet 02/18/18 Unknown Rx TAB] Acetaminophen [Tylenol Extra 1,000 mg PO QID PRN #30 tablet 02/22/18 Unknown Rx Strength] Cephalexin [Keflex] 500 mg PO TID 10 Days #30 capsule 02/22/18 Unknown Rx Chlorhexidine Gluconate [Hibiclens] 10 ml TP BID #240 liquid 02/26/18 Unknown Rx Clotrimazole/Betamethasone Dip 1 applicatio TP BID #1 cream..g. 02/26/18 Unknown Rx [Lotrisone Cream] cephALEXin [Keflex] 500 mg PO Q6HR #40 capsule 02/26/18 Unknown Rx Allergies Allergy/AdvReac Type Severity Reaction Status Date / Time naproxen [From Naprosyn] Allergy Rash Verified 01/11/18 10:47 ED Review of Systems ROS: Stated complaint: BLEEDING BELLY BUTTON/SMELLY Other details as noted in HPI Constitutional: denies: chills, fever Eyes: denies: eye pain, eye discharge, vision change ENT: denies: ear pain, throat pain Respiratory: denies: cough, shortness of breath, wheezing Cardiovascular: denies: chest pain, palpitations Endocrine: no symptoms reported Gastrointestinal: denies: abdominal pain, nausea, diarrhea Genitourinary: denies: urgency, dysuria, discharge Musculoskeletal: denies: back pain, joint swelling, arthralgia Skin: change in color. denies: rash, lesions Neurological: denies: headache, weakness, paresthesias Psychiatric: denies: anxiety, depression Hematological/Lymphatic: denies: easy bleeding, easy bruising ED Past Medical Hx - Past Medical History Previous Medical History?: Yes Hx Headaches / Migraines: Yes Hx Psychiatric Treatment: Yes (depression) Additional medical history: Lower back pain with radiation - Surgical History Past Surgical History?: Yes Additional Surgical History: Hardware in right leg and ankle. right knee surgery. TUBAL LIGATION - Social History Smoking Status: Never Smoker Substance Use Type: None - Medications Home Medications: Home Medications Medication Instructions Recorded Confirmed Last Taken Type Ibuprofen [Motrin 800 MG tab] 800 mg PO Q8HR PRN #30 tablet 06/18/16 Unknown Rx traMADol [Ultram 50 MG tab] 50 mg PO Q6HR PRN 12 Days #15 09/02/17 Unknown Rx tablet Chlorhexidine Mouthwash [Peridex] 15 ml MM BID #1 bottle 09/09/17 Unknown Rx Clindamycin [Clindamycin CAP] 300 mg PO Q6H #40 capsule 09/09/17 Unknown Rx traMADol [Ultram] 50 mg PO Q6HR PRN #15 tablet 09/09/17 Unknown Rx Tizanidine HCl [Zanaflex] 4 mg PO TID PRN #12 capsule 09/25/17 Unknown Rx traMADol [Ultram 50 MG tab] 50 mg PO Q4HR PRN #12 tablet 09/25/17 Unknown Rx Ibuprofen [Motrin 600 MG tab] 600 mg PO Q8H PRN #15 tablet 11/25/17 Unknown Rx Butalb/Acetaminophen/Caffeine 1 cap PO Q6HR PRN #15 cap 11/29/17 Unknown Rx [Fioricet 50-300-40 mg CAP] Methocarbamol [Robaxin-750] 750 mg PO TID #20 tablet 01/11/18 Unknown Rx predniSONE [Deltasone] 20 mg PO QDAY #7 tab 01/11/18 Unknown Rx Cyclobenzaprine [Flexeril 10mg] 10 mg PO Q12H PRN #14 tablet 01/19/18 Unknown Rx cephALEXin [Keflex] 500 mg PO Q8HR 7 Days #14 cap 01/19/18 Unknown Rx traMADol [Ultram 50 MG tab] 50 mg PO Q6HR PRN #20 tablet 01/19/18 Unknown Rx Acetaminophen [Tylenol Extra 1,000 mg PO QID PRN #60 tablet 01/26/18 Unknown Rx Strength] Diclofenac Sodium [Voltaren] 1 applicatio TP TID PRN #1 tube 01/26/18 Unknown Rx Cyclobenzaprine [Flexeril 10 MG 10 mg PO TID PRN #10 tablet 02/18/18 Unknown Rx TAB] Acetaminophen [Tylenol Extra 1,000 mg PO QID PRN #30 tablet 02/22/18 Unknown Rx Strength] Cephalexin [Keflex] 500 mg PO TID 10 Days #30 capsule 02/22/18 Unknown Rx Chlorhexidine Gluconate [Hibiclens] 10 ml TP BID #240 liquid 02/26/18 Unknown Rx Clotrimazole/Betamethasone Dip 1 applicatio TP BID #1 cream..g. 02/26/18 Unknown Rx [Lotrisone Cream] cephALEXin [Keflex] 500 mg PO Q6HR #40 capsule 02/26/18 Unknown Rx ED Physical Exam - General Limitations: No Limitations General appearance: alert, in no apparent distress - Head Head exam: Present: atraumatic, normocephalic - Eye Eye exam: Present: normal appearance - ENT ENT exam: Present: mucous membranes moist - Neck Neck exam: Present: normal inspection - Respiratory Respiratory exam: Present: normal lung sounds bilaterally. Absent: respiratory distress - Cardiovascular Cardiovascular Exam: Present: regular rate, normal rhythm. Absent: systolic murmur, diastolic murmur, rubs, gallop - GI/Abdominal GI/Abdominal exam: Present: soft, normal bowel sounds, other (hyperpigmented, scaly rash to the naval region with cracked fissures in the naval can avidly. There is scant serous fluid discharge. No pus is appreciated. No bleeding is appreciated. No induration or swelling around the umbilicus region. No suprapubic pain. No lymphangitis. No inguinal Lymphadenopathy). Absent: distended, hypoactive bowel sounds - Extremities Exam Extremities exam: Present: normal inspection - Back Exam Back exam: Present: normal inspection - Neurological Exam Neurological exam: Present: alert, oriented X3 - Psychiatric Psychiatric exam: Present: normal affect, normal mood - Skin Skin exam: Present: warm, dry, intact, normal color. Absent: rash ED Course Vital Signs 02/26/18 15:49 Temperature 97.6 F Pulse Rate 76 Respiratory 16 Rate Blood Pressure 117/75 O2 Sat by Pulse 100 Oximetry ED Medical Decision Making - Medical Decision Making Rashes of as a thickened fungal presentation with some secondary his skin fissures likely some early secondary infection. No active cellulitis. Plan is to follow fungal origin clean the wound well with some anti-microbial soaps and oriented robotics and have her follow-up with [facility] primary care doctor every 3 days for wound reevaluation. Patient has been been actively picking at the wound off and on, which may have been the nidus for the initial rheumatoid versus infectious presentation - Differential Diagnosis early cellulitis, early abscess, fungal infection, infection, inflammatory Critical care attestation.: If time is entered above; I have spent that time in minutes in the direct care of this critically ill patient, excluding procedure time. ED Disposition Clinical Impression: Open wound of umbilical region Disposition: DC-01 TO HOME OR SELFCARE Is pt being admited?: No Does the pt Need Aspirin: No Condition: Stable Referrals: PRIMARY CARE, [Primary Care Provider] - 3-5 Days
== END 2018-02-26 21:19 | disposition home or self-care (01) ==
LOC: ED 15:44

== ENCOUNTER 2018-03-26 11:07 | Emergency (ER) | payer OTHER ==
[2018-03-26 11:23] VITALS: BP 102/56
--- NOTE | 2018-03-26 11:23 | Emergency Department Report ---
Blank Doc - Documentation Documentation: 48-year-old female that presents with right index finger pain s/p jamming it. Patient denies any other complaints. Will order xray Patient sent to [facility] for further evaluation and treatment.
--- NOTE | 2018-03-26 11:49 | XRay Report ---
RIGHT HAND, 3 views: History: Pain. No acute osseous injury or joint pathology is detected. Chronic healed fracture of the fourth metacarpal shaft is suspected. The soft tissues are unremarkable. IMPRESSION: No acute process. Chronic, healed fourth metacarpal fracture.
--- NOTE | 2018-03-26 12:21 | Emergency Department Report ---
ED Back Pain/Injury HPI - General Chief Complaint: Extremity Injury, Upper Stated Complaint: RT FINGER INJURY Time Seen by Provider: 03/26/18 11:24 Source: patient Limitations: No Limitations - History of Present Illness Initial Comments: Patient is a 48-year-old, -[place]inamese female who jammed her finger 3 days ago. He does continue to hurt so she came in today to make sure it is not fractured. -: Sudden Worsens With: movement Associated Symptoms: denies other symptoms - Related Data Previous Rx's Medication Instructions Recorded Last Taken Type Ibuprofen [Motrin 800 MG tab] 800 mg PO Q8HR PRN #30 tablet 06/18/16 Unknown Rx traMADol [Ultram 50 MG tab] 50 mg PO Q6HR PRN 12 Days #15 09/02/17 Unknown Rx tablet Chlorhexidine Mouthwash [Peridex] 15 ml MM BID #1 bottle 09/09/17 Unknown Rx Clindamycin [Clindamycin CAP] 300 mg PO Q6H #40 capsule 09/09/17 Unknown Rx traMADol [Ultram] 50 mg PO Q6HR PRN #15 tablet 09/09/17 Unknown Rx Tizanidine HCl [Zanaflex] 4 mg PO TID PRN #12 capsule 09/25/17 Unknown Rx traMADol [Ultram 50 MG tab] 50 mg PO Q4HR PRN #12 tablet 09/25/17 Unknown Rx Ibuprofen [Motrin 600 MG tab] 600 mg PO Q8H PRN #15 tablet 11/25/17 Unknown Rx Butalb/Acetaminophen/Caffeine 1 cap PO Q6HR PRN #15 cap 11/29/17 Unknown Rx [Fioricet 50-300-40 mg CAP] Methocarbamol [Robaxin-750] 750 mg PO TID #20 tablet 01/11/18 Unknown Rx predniSONE [Deltasone] 20 mg PO QDAY #7 tab 01/11/18 Unknown Rx Cyclobenzaprine [Flexeril 10mg] 10 mg PO Q12H PRN #14 tablet 01/19/18 Unknown Rx cephALEXin [Keflex] 500 mg PO Q8HR 7 Days #14 cap 01/19/18 Unknown Rx traMADol [Ultram 50 MG tab] 50 mg PO Q6HR PRN #20 tablet 01/19/18 Unknown Rx Acetaminophen [Tylenol Extra 1,000 mg PO QID PRN #60 tablet 01/26/18 Unknown Rx Strength] Diclofenac Sodium [Voltaren] 1 applicatio TP TID PRN #1 tube 01/26/18 Unknown Rx Cyclobenzaprine [Flexeril 10 MG 10 mg PO TID PRN #10 tablet 02/18/18 Unknown Rx TAB] Acetaminophen [Tylenol Extra 1,000 mg PO QID PRN #30 tablet 02/22/18 Unknown Rx Strength] Cephalexin [Keflex] 500 mg PO TID 10 Days #30 capsule 02/22/18 Unknown Rx Chlorhexidine Gluconate [Hibiclens] 10 ml TP BID #240 liquid 02/26/18 Unknown Rx Clotrimazole/Betamethasone Dip 1 applicatio TP BID #1 cream..g. 02/26/18 Unknown Rx [Lotrisone Cream] cephALEXin [Keflex] 500 mg PO Q6HR #40 capsule 02/26/18 Unknown Rx Allergies Allergy/AdvReac Type Severity Reaction Status Date / Time naproxen [From Naprosyn] Allergy Rash Verified 03/26/18 11:09 ED Review of Systems ROS: Stated complaint: RT FINGER INJURY Other details as noted in HPI Comment: All other systems reviewed and negative Constitutional: denies: no symptoms reported ENT: denies: throat pain Cardiovascular: denies: dyspnea on exertion Endocrine: denies: flushing Gastrointestinal: denies: abdominal pain Musculoskeletal: as per HPI, other (finger pain) Skin: denies: rash Neurological: denies: as per HPI Psychiatric: denies: depression Hematological/Lymphatic: denies: easy bleeding ED Past Medical Hx - Past Medical History Medical history: no medical history Lower back pain with radiation Surgical history: bilateral tubal ligation, other (ankle and leg surgery, right) LEISURE STUDIES PROFESSOR history: no LEISURE STUDIES PROFESSOR history Family history: no significant family history - Social History Alcohol use: none Drug use: none ED Back Pain Physical Exam - Exam General: Vital signs noted. No distress. Alert and acting appropriately. There is no contusion laceration or abrasion. Patient has full range of motion. Rapid capillary refill. Radial and ulnar pulses intact. X-ray negative for fracture. Will send patient home with conservative treatment. Back/Abdomen: No Abdominal Tenderness, No Perithoracic Tenderness, No Perilumbar Tenderness, No Sacroiliac Tenderness, No Flank Tenderness, No Straight Leg Raise Pain Neuro: Yes Normal Sensation, Yes Normal DTR's, Yes Normal Gait, No Motor Weakness ED Course Vital Signs 03/26/18 11:22 Temperature 97.9 F Pulse Rate 72 Respiratory 18 Rate Blood Pressure 102/56 O2 Sat by Pulse 100 Oximetry ED Medical Decision Making - Radiology Data Radiology results: report reviewed, image reviewed nap - Medical Decision Making There is no contusion laceration or abrasion. Patient has full range of motion. Rapid capillary refill. Radial and ulnar pulses intact. X-ray negative for fracture. Will send patient home with conservative treatment. - Differential Diagnosis ro fx Critical care attestation.: If time is entered above; I have spent that time in minutes in the direct care of this critically ill patient, excluding procedure time. ED Disposition Clinical Impression: Contusion Disposition: DC-01 TO HOME OR SELFCARE Is pt being admited?: No Does the pt Need Aspirin: No Condition: Stable Instructions: Contusion in Adults (ED) Additional Instructions: ice rest elevate motrin for pain xray neg for fracture Referrals: JADON JAVIER MD [Staff Physician] - 3-5 Days Time of Disposition: 12:18
== END 2018-03-26 14:11 | disposition home or self-care (01) ==
LOC: ED 11:07
DX: S60.041A Contusion of right ring finger without damage to nail, initial encounter (principal); X58.XXXA Exposure to other specified factors, initial encounter; Y93.89 Activity, other specified; Y99.8 Other external cause status; Y92.89 Other specified places as the place of occurrence of the external cause
CPT/HCPCS: 99281; 99282

== ENCOUNTER 2019-03-14 16:19 | Emergency (ER) | payer SELFPAY ==
--- NOTE | 2019-03-14 17:10 | Emergency Department Report ---
Blank Doc - Documentation Documentation: 49-year-old female that presents with vaginal discharge and pelvic pain. This initial assessment/diagnostic orders/clinical plan/treatment(s) is/are subject to change based on patient's health status, clinical progression and re- assessment by fellow clinical providers in the ED. Further treatment and workup at subsequent clinical providers discretion. Patient/guardians urged not to elope from the ED as their condition may be serious if not clinically assessed and managed. Initial orders include: 1- Patient sent to [facility] for further evaluation and treatment 2- UA 3- pelvic exam to be done
[2019-03-14 17:47] LABS: HCG Qualitative,Urine Negative (Negative)
[2019-03-14 18:20] LABS: Basophils % (Auto) 0.6 % (0.0-1.8); Eosinophils # (Auto) 0.2 K/mm3 (0.0-0.4); Eosinophils % (Auto) 3.1 % (0.0-4.3); Hematocrit 34.9 % (30.3-42.9); Hemoglobin 11.6 gm/dl (10.1-14.3); Lymphocytes # (Auto) 1.4 K/mm3 (1.2-5.4); Lymphocytes % (Auto) 20.8 % (13.4-35.0); Mean Corpuscular HGB Conc 33 % (30-34); Mean Corpuscular Volume 89 fl (79-97); Monocytes # (Auto) 0.6 K/mm3 (0.0-0.8); Monocytes % (Auto) 8.4 % (0.0-7.3); Platelet Count 282 K/mm3 (140-440); Red Blood Count 3.94 M/mm3 (3.65-5.03); Red Cell Distribution Width 13.7 % (13.2-15.2)
[2019-03-14 20:43] LABS: Bilirubin,Urine NEG (Negative); Blood,Urine NEG (Negative); Color,Urine Straw (Yellow); Mucus,Urine FEW /HPF; Protein,Urine <15 mg/dL mg/dL (Negative); Urobilinogen,Urine < 2.0 mg/dL (<2.0)
--- NOTE | 2019-03-14 20:48 | XRay Report ---
CHEST 2 VIEWS 2032 INDICATION / CLINICAL INFORMATION: cough and chest pain COMPARISON: None available. FINDINGS: SUPPORT DEVICES: None. HEART / MEDIASTINUM: No significant abnormality. LUNGS / PLEURA: There appears to be partial eventration of both hemidiaphragms. I believe this accoun ts for the density in the left posterior lung base. No areas of consolidation are seen. No pneumothor ax. ADDITIONAL FINDINGS: No significant additional findings. IMPRESSION: No significant acute abnormality Signer Name: Jovanny Ferrari MD Signed: 03/14/2019 8:44 PM Workstation Name: [id number]
--- NOTE | 2019-03-14 21:32 | Emergency Department Report ---
ED General Adult HPI - General Chief complaint: Urogenital-Female Stated complaint: PINK EYE/COUGHING/KIDNEY INFEC Time Seen by Provider: 03/14/19 17:10 Source: patient Mode of arrival: Ambulatory Limitations: No Limitations - Related Data Previous Rx's Medication Instructions Recorded Last Taken Type Ibuprofen [Motrin 800 MG tab] 800 mg PO Q8HR PRN #30 tablet 06/18/16 Unknown Rx traMADoL [Ultram 50 MG tab] 50 mg PO Q6HR PRN 12 Days #15 09/02/17 Unknown Rx tablet Chlorhexidine Mouthwash [Peridex] 15 ml MM BID #1 bottle 09/09/17 Unknown Rx Clindamycin [Clindamycin CAP] 300 mg PO Q6H #40 capsule 09/09/17 Unknown Rx traMADoL [Ultram] 50 mg PO Q6HR PRN #15 tablet 09/09/17 Unknown Rx Tizanidine HCl [Zanaflex 4mg CAP] 4 mg PO TID PRN #12 capsule 09/25/17 Unknown Rx traMADoL [Ultram 50 MG tab] 50 mg PO Q4HR PRN #12 tablet 09/25/17 Unknown Rx Ibuprofen [Motrin 600 MG tab] 600 mg PO Q8H PRN #15 tablet 11/25/17 Unknown Rx Butalb/Acetaminophen/Caffeine 1 cap PO Q6HR PRN #15 cap 11/29/17 Unknown Rx [Fioricet 50-300-40 mg CAP] Methocarbamol [Robaxin-750] 750 mg PO TID #20 tablet 01/11/18 Unknown Rx predniSONE [Deltasone] 20 mg PO QDAY #7 tab 01/11/18 Unknown Rx Cyclobenzaprine [Flexeril 10mg] 10 mg PO Q12H PRN #14 tablet 01/19/18 Unknown Rx cephALEXin [Keflex] 500 mg PO Q8HR 7 Days #14 cap 01/19/18 Unknown Rx traMADoL [Ultram 50 MG tab] 50 mg PO Q6HR PRN #20 tablet 01/19/18 Unknown Rx Acetaminophen [Tylenol Extra 1,000 mg PO QID PRN #60 tablet 01/26/18 Unknown Rx Strength] Diclofenac Sodium [Voltaren] 1 applicatio TP TID PRN #1 tube 01/26/18 Unknown Rx Cyclobenzaprine [Flexeril 10 MG 10 mg PO TID PRN #10 tablet 02/18/18 Unknown Rx TAB] Acetaminophen [Tylenol Extra 1,000 mg PO QID PRN #30 tablet 02/22/18 Unknown Rx Strength] Cephalexin [Keflex] 500 mg PO TID 10 Days #30 capsule 02/22/18 Unknown Rx Chlorhexidine Gluconate [Hibiclens] 10 ml TP BID #240 liquid 02/26/18 Unknown Rx Clotrimazole/Betamethasone Dip 1 applicatio TP BID #1 cream..g. 02/26/18 Unknown Rx [Lotrisone Cream] cephALEXin [Keflex] 500 mg PO Q6HR #40 capsule 02/26/18 Unknown Rx Tobramycin [Tobrex] 1 drop OP Q4H #1 bottle 03/14/19 Unknown Rx guaiFENesin/CODEINE [Robitussin AC] 5 ml PO Q6H PRN #120 ml 03/14/19 Unknown Rx metroNIDAZOLE [Flagyl] 500 mg PO Q12HR #14 tab 03/14/19 Unknown Rx Allergies Allergy/AdvReac Type Severity Reaction Status Date / Time naproxen [From Naprosyn] Allergy Rash Verified 03/26/18 11:09 ED Review of Systems ROS: Stated complaint: PINK EYE/COUGHING/KIDNEY INFEC Other details as noted in HPI Comment: All other systems reviewed and negative ED Past Medical Hx - Past Medical History Previous Medical History?: Yes Hx Headaches / Migraines: Yes Hx Psychiatric Treatment: Yes (depression) Additional medical history: Lower back pain with radiation - Surgical History Past Surgical History?: Yes Additional Surgical History: Hardware in right leg and ankle. right knee surgery. TUBAL LIGATION - Social History Smoking Status: Never Smoker Substance Use Type: None - Medications Home Medications: Home Medications Medication Instructions Recorded Confirmed Last Taken Type Ibuprofen [Motrin 800 MG tab] 800 mg PO Q8HR PRN #30 tablet 06/18/16 Unknown Rx traMADoL [Ultram 50 MG tab] 50 mg PO Q6HR PRN 12 Days #15 09/02/17 Unknown Rx tablet Chlorhexidine Mouthwash [Peridex] 15 ml MM BID #1 bottle 09/09/17 Unknown Rx Clindamycin [Clindamycin CAP] 300 mg PO Q6H #40 capsule 09/09/17 Unknown Rx traMADoL [Ultram] 50 mg PO Q6HR PRN #15 tablet 09/09/17 Unknown Rx Tizanidine HCl [Zanaflex 4mg CAP] 4 mg PO TID PRN #12 capsule 09/25/17 Unknown Rx traMADoL [Ultram 50 MG tab] 50 mg PO Q4HR PRN #12 tablet 09/25/17 Unknown Rx Ibuprofen [Motrin 600 MG tab] 600 mg PO Q8H PRN #15 tablet 11/25/17 Unknown Rx Butalb/Acetaminophen/Caffeine 1 cap PO Q6HR PRN #15 cap 11/29/17 Unknown Rx [Fioricet 50-300-40 mg CAP] Methocarbamol [Robaxin-750] 750 mg PO TID #20 tablet 01/11/18 Unknown Rx predniSONE [Deltasone] 20 mg PO QDAY #7 tab 01/11/18 Unknown Rx Cyclobenzaprine [Flexeril 10mg] 10 mg PO Q12H PRN #14 tablet 01/19/18 Unknown Rx cephALEXin [Keflex] 500 mg PO Q8HR 7 Days #14 cap 01/19/18 Unknown Rx traMADoL [Ultram 50 MG tab] 50 mg PO Q6HR PRN #20 tablet 01/19/18 Unknown Rx Acetaminophen [Tylenol Extra 1,000 mg PO QID PRN #60 tablet 01/26/18 Unknown Rx Strength] Diclofenac Sodium [Voltaren] 1 applicatio TP TID PRN #1 tube 01/26/18 Unknown Rx Cyclobenzaprine [Flexeril 10 MG 10 mg PO TID PRN #10 tablet 02/18/18 Unknown Rx TAB] Acetaminophen [Tylenol Extra 1,000 mg PO QID PRN #30 tablet 02/22/18 Unknown Rx Strength] Cephalexin [Keflex] 500 mg PO TID 10 Days #30 capsule 02/22/18 Unknown Rx Chlorhexidine Gluconate [Hibiclens] 10 ml TP BID #240 liquid 02/26/18 Unknown Rx Clotrimazole/Betamethasone Dip 1 applicatio TP BID #1 cream..g. 02/26/18 Unknown Rx [Lotrisone Cream] cephALEXin [Keflex] 500 mg PO Q6HR #40 capsule 02/26/18 Unknown Rx Tobramycin [Tobrex] 1 drop OP Q4H #1 bottle 03/14/19 Unknown Rx guaiFENesin/CODEINE [Robitussin AC] 5 ml PO Q6H PRN #120 ml 03/14/19 Unknown Rx metroNIDAZOLE [Flagyl] 500 mg PO Q12HR #14 tab 03/14/19 Unknown Rx ED Physical Exam - General Limitations: No Limitations General appearance: alert, in no apparent distress - Head Head exam: Present: atraumatic, normocephalic - Eye Eye exam: Present: normal appearance, PERRL, EOMI Pupils: Present: normal accommodation - ENT ENT exam: Present: normal exam, normal orophraynx, mucous membranes moist, TM's normal bilaterally - Neck Neck exam: Present: normal inspection, full ROM - Respiratory Respiratory exam: Present: normal lung sounds bilaterally. Absent: respiratory distress, wheezes, rales, chest wall tenderness, accessory muscle use - Cardiovascular Cardiovascular Exam: Present: regular rate, normal rhythm. Absent: systolic murmur, diastolic murmur, rubs, gallop - GI/Abdominal GI/Abdominal exam: Present: soft, normal bowel sounds. Absent: diminished bowel sounds - Extremities Exam Extremities exam: Present: normal inspection, full ROM, normal capillary refill - Back Exam Back exam: Present: normal inspection. Absent: CVA tenderness (R), CVA tendern ess (L) - Neurological Exam Neurological exam: Present: alert, oriented X3, CN II-XII intact, normal gait - Psychiatric Psychiatric exam: Present: normal affect, normal mood. Absent: flat affect, manic, homicidal ideation - Skin Skin exam: Present: warm, dry, intact, normal color. Absent: rash, cyanosis, diaphoretic, erythema, petechiae, pallor, abrasion ED Course Vital Signs 03/14/19 17:05 Temperature 98.6 F Pulse Rate 77 Respiratory 20 Rate Blood Pressure 117/80 O2 Sat by Pulse 96 Oximetry ED Medical Decision Making - Lab Data Result diagrams: 03/14/19 17:52 Critical care attestation.: If time is entered above; I have spent that time in minutes in the direct care of this critically ill patient, excluding procedure time. ED Disposition Clinical Impression: Vaginal discharge, Conjunctivitis, Cough, Dysuria Disposition: TO HOME OR SELFCARE Is pt being admited?: No Does the pt Need Aspirin: No Condition: Stable Instructions: Vaginitis (ED), Cold Symptoms (ED), Acute Cough (ED), Conjunctivitis (ED) Referrals: PRIMARY CARE, [Primary Care Provider] - 3-5 Days MAGY NESS MD [Staff Physician] - 3-5 Days [facility] [Provider Group] - 3-5 Days
[2019-03-14 22:32] VITALS: BP 114/78
== END 2019-03-14 22:40 | disposition home or self-care (01) ==
LOC: ED 16:19
DX: N89.8 Other specified noninflammatory disorders of vagina (principal); H10.9 Unspecified conjunctivitis; R05 Cough; R30.0 Dysuria; G43.909 Migraine, unspecified, not intractable, without status migrainosus; F32.9 Major depressive disorder, single episode, unspecified; Z98.890 Other specified postprocedural states; Z98.51 Tubal ligation status; Z79.899 Other long term (current) drug therapy; Z88.8 Allergy status to other drugs, medicaments and biological substances
CPT/HCPCS: 36415; 71046; 81001; 81025; 85025; 87086; 87210

== ENCOUNTER 2019-03-15 10:10 | Emergency (ER) | payer SELFPAY ==
[2019-03-15 10:35] VITALS: BP 117/79
[2019-03-15] MEDS ORDERED: METOCLOPRAMIDE 10 MG/2 ML INJ IV ONE (13:51)
[2019-03-15] MEDS ORDERED: KETOROLAC 30 MG/1 ML INJ IV ONE (13:51)
[2019-03-15] MEDS ORDERED: diphenhydrAMINE 50 MG/ML VIAL IV ONE (13:51)
--- NOTE | 2019-03-15 14:04 | Emergency Department Report ---
ED Headache HPI - General Chief Complaint: Weakness Stated Complaint: VOMIT BLOOD/HEAD PAIN Time Seen by Provider: 03/15/19 13:29 - History of Present Illness Initial Comments: 49-year-old -[place] female presents to the emergency room stating that she has a headache. Patient states that she was seen here yesterday and was prescribed Bactrim and Flagyl and cough medication. Patient states that she last took Tylenol at 3 AM and ibuprofen prior to arrival. He reports that the headache is located in the right frontal temporal area. Patient denies any nausea vomiting no diarrhea no photophobia. Patient does admit that she has a history of migraines. Timing/Duration: 24 hours Quality: moderate Head Injury Location: frontal, temporal Recent Head Trauma: no recent headache/trauma Associated Symptoms: denies: nausea/vomiting Allergies/Adverse Reactions: Allergies naproxen [From Naprosyn] Allergy (Verified 03/26/18 11:09) Rash Home Medications: Ambulatory Orders Ibuprofen [Motrin 800 MG tab] 800 mg PO Q8HR PRN #30 tablet 06/18/16 traMADoL [Ultram 50 MG tab] 50 mg PO Q6HR PRN 12 Days #15 tablet 09/02/17 Chlorhexidine Mouthwash [Peridex] 15 ml MM BID #1 bottle 09/09/17 Clindamycin [Clindamycin CAP] 300 mg PO Q6H #40 capsule 09/09/17 traMADoL [Ultram] 50 mg PO Q6HR PRN #15 tablet 09/09/17 Tizanidine HCl [Zanaflex 4mg CAP] 4 mg PO TID PRN #12 capsule 09/25/17 traMADoL [Ultram 50 MG tab] 50 mg PO Q4HR PRN #12 tablet 09/25/17 Ibuprofen [Motrin 600 MG tab] 600 mg PO Q8H PRN #15 tablet 11/25/17 Butalb/Acetaminophen/Caffeine [Fioricet 50-300-40 mg CAP] 1 cap PO Q6HR PRN #15 cap 11/29/17 Methocarbamol [Robaxin-750] 750 mg PO TID #20 tablet 01/11/18 predniSONE [Deltasone] 20 mg PO QDAY #7 tab 01/11/18 Cyclobenzaprine [Flexeril 10mg] 10 mg PO Q12H PRN #14 tablet 01/19/18 cephALEXin [Keflex] 500 mg PO Q8HR 7 Days #14 cap 01/19/18 traMADoL [Ultram 50 MG tab] 50 mg PO Q6HR PRN #20 tablet 01/19/18 Acetaminophen [Tylenol Extra Strength] 1,000 mg PO QID PRN #60 tablet 01/26/18 Diclofenac Sodium [Voltaren] 1 applicatio TP TID PRN #1 tube 01/26/18 Cyclobenzaprine [Flexeril 10 MG TAB] 10 mg PO TID PRN #10 tablet 02/18/18 Acetaminophen [Tylenol Extra Strength] 1,000 mg PO QID PRN #30 tablet 02/22/18 Cephalexin [Keflex] 500 mg PO TID 10 Days #30 capsule 02/22/18 Chlorhexidine Gluconate [Hibiclens] 10 ml TP BID #240 liquid 02/26/18 Clotrimazole/Betamethasone Dip [Lotrisone Cream] 1 applicatio TP BID #1 cr eam..g. 02/26/18 cephALEXin [Keflex] 500 mg PO Q6HR #40 capsule 02/26/18 Sulfamethoxazole/Trimethoprim [Bactrim DS TAB] 1 each PO BID #20 tablet 03/14/19 Tobramycin [Tobrex] 1 drop OP Q4H #1 bottle 03/14/19 guaiFENesin/CODEINE [Robitussin AC] 5 ml PO Q6H PRN #120 ml 03/14/19 metroNIDAZOLE [Flagyl] 500 mg PO Q12HR #14 tab 03/14/19 ED Review of Systems ROS: Stated complaint: VOMIT BLOOD/HEAD PAIN Other details as noted in HPI ED Past Medical Hx - Past Medical History Previous Medical History?: Yes Hx Headaches / Migraines: Yes Hx Psychiatric Treatment: Yes (depression) Additional medical history: Lower back pain with radiation - Surgical History Past Surgical History?: Yes Additional Surgical History: Hardware in right leg and ankle. right knee surgery. TUBAL LIGATION - Social History Smoking Status: Never Smoker Substance Use Type: None - Medications Home Medications: Home Medications Medication Instructions Recorded Confirmed Last Taken Type Ibuprofen [Motrin 800 MG tab] 800 mg PO Q8HR PRN #30 tablet 06/18/16 Unknown Rx traMADoL [Ultram 50 MG tab] 50 mg PO Q6HR PRN 12 Days #15 09/02/17 Unknown Rx tablet Chlorhexidine Mouthwash [Peridex] 15 ml MM BID #1 bottle 09/09/17 Unknown Rx Clindamycin [Clindamycin CAP] 300 mg PO Q6H #40 capsule 09/09/17 Unknown Rx traMADoL [Ultram] 50 mg PO Q6HR PRN #15 tablet 09/09/17 Unknown Rx Tizanidine HCl [Zanaflex 4mg CAP] 4 mg PO TID PRN #12 capsule 09/25/17 Unknown Rx traMADoL [Ultram 50 MG tab] 50 mg PO Q4HR PRN #12 tablet 09/25/17 Unknown Rx Ibuprofen [Motrin 600 MG tab] 600 mg PO Q8H PRN #15 tablet 11/25/17 Unknown Rx Butalb/Acetaminophen/Caffeine 1 cap PO Q6HR PRN #15 cap 11/29/17 Unknown Rx [Fioricet 50-300-40 mg CAP] Methocarbamol [Robaxin-750] 750 mg PO TID #20 tablet 01/11/18 Unknown Rx predniSONE [Deltasone] 20 mg PO QDAY #7 tab 01/11/18 Unknown Rx Cyclobenzaprine [Flexeril 10mg] 10 mg PO Q12H PRN #14 tablet 01/19/18 Unknown Rx cephALEXin [Keflex] 500 mg PO Q8HR 7 Days #14 cap 01/19/18 Unknown Rx traMADoL [Ultram 50 MG tab] 50 mg PO Q6HR PRN #20 tablet 01/19/18 Unknown Rx Acetaminophen [Tylenol Extra 1,000 mg PO QID PRN #60 tablet 01/26/18 Unknown Rx Strength] Diclofenac Sodium [Voltaren] 1 applicatio TP TID PRN #1 tube 01/26/18 Unknown Rx Cyclobenzaprine [Flexeril 10 MG 10 mg PO TID PRN #10 tablet 02/18/18 Unknown Rx TAB] Acetaminophen [Tylenol Extra 1,000 mg PO QID PRN #30 tablet 02/22/18 Unknown Rx Strength] Cephalexin [Keflex] 500 mg PO TID 10 Days #30 capsule 02/22/18 Unknown Rx Chlorhexidine Gluconate [Hibiclens] 10 ml TP BID #240 liquid 02/26/18 Unknown Rx Clotrimazole/Betamethasone Dip 1 applicatio TP BID #1 cream..g. 02/26/18 Unknown Rx [Lotrisone Cream] cephALEXin [Keflex] 500 mg PO Q6HR #40 capsule 02/26/18 Unknown Rx Sulfamethoxazole/Trimethoprim 1 each PO BID #20 tablet 03/14/19 Unknown Rx [Bactrim DS TAB] Tobramycin [Tobrex] 1 drop OP Q4H #1 bottle 03/14/19 Unknown Rx guaiFENesin/CODEINE [Robitussin AC] 5 ml PO Q6H PRN #120 ml 03/14/19 Unknown Rx metroNIDAZOLE [Flagyl] 500 mg PO Q12HR #14 tab 03/14/19 Unknown Rx ED Physical Exam - General Limitations: No Limitations General appearance: alert, in no apparent distress - Head Head exam: Present: atraumatic, normocephalic - Eye Eye exam: Present: normal appearance - ENT ENT exam: Present: mucous membranes moist - Expanded Neurological Exam Expanded Cranial nerves: EOM's Intact: Normal, Gag Reflex: Normal, Tongue Deviation: Normal, Nystagmus: Normal, Facial Sensation: Normal, Facial Palsy with Forehead Movement: Normal, Facial Palsy without Forehead Movement: Normal Cerebellar function: Finger to Nose: Normal, Heel to Ashraf: Normal, Romberg: No rmal Upper motor neuron: Chirag Neglect: Normal, Pronator Drift: Normal, Sensory Extinction: Normal Sensory exam: Upper Extremity Light Touch: Normal, Upper Extremity Pin Prick: Normal, Upper Extremity Temperature: Normal, UE 2 Point Discrimination: Normal, Lower Extremity Light Touch: Normal, Lower Extremity Pin Prick: Normal, Lower Extremity Temperature: Normal, LE 2 Point Discrimination: Normal Motor strength exam: RUE: 4, LUE: 4, RLE: 4, LLE: 4 Best Eye Response (Domenica): (4) open spontaneously Best Motor Response (Domenica): (6) obeys commands Best Verbal Response (Domenica): (5) oriented Domenica Total: 15 - Psychiatric Psychiatric exam: Present: normal affect, normal mood - Skin Skin exam: Present: warm, dry, intact, normal color. Absent: rash ED Course Vital Signs 03/15/19 10:34 Temperature 98.1 F Pulse Rate 80 Respiratory 16 Rate Blood Pressure 117/79 O2 Sat by Pulse 98 Oximetry ED Medical Decision Making - Medical Decision Making 49-year-old -[place] female presents to the emergency room stating that she has a headache. Patient states that she was seen here yesterday and was prescribed Bactrim and Flagyl and cough medication. Patient states that she last took Tylenol at 3 AM and ibuprofen prior to arrival. He reports that the headache is located in the right frontal temporal area. Patient denies any nausea vomiting no diarrhea no photophobia. Patient does admit that she has a history of migraines. IV migraine medication. Patient is continuing with her medications that were prescribed to her yesterday. She can take [id number] Tylenol or ibuprofen for pain management. Critical care attestation.: If time is entered above; I have spent that time in minutes in the direct care of this critically ill patient, excluding procedure time. ED Disposition Clinical Impression: Headache Disposition: DC-01 TO HOME OR SELFCARE Is pt being admited?: No Does the pt Need Aspirin: No Condition: Stable Instructions: Acute Headache (ED) Additional Instructions: Please continue to take her medications that were prescribed to yesterday. Increase her fluid intake avenger diet as tolerated. Tylenol or ibuprofen as needed for headache. Referrals: [facility] [Other] - 3-5 Days
== END 2019-03-15 14:52 | disposition home or self-care (01) ==
LOC: ED 10:10
DX: G43.909 Migraine, unspecified, not intractable, without status migrainosus (principal); F32.9 Major depressive disorder, single episode, unspecified; Z98.51 Tubal ligation status; Z79.899 Other long term (current) drug therapy; Z88.8 Allergy status to other drugs, medicaments and biological substances
CPT/HCPCS: 96374; 96375; 99282; J1200; J1885; J2765

== ENCOUNTER 2019-04-14 09:32 | Emergency (ER) | payer OTHER ==
[2019-04-14 09:42] VITALS: BP 115/78
--- NOTE | 2019-04-14 12:33 | Emergency Department Report ---
Chief Complaint: Extremity Injury, Lower Stated Complaint: LEFT KNEE PAIN/LEFT EYE ISSUE Time Seen by Provider: 04/14/19 12:24 - HPI History of Present Illness: 49-year-old -[place] female presents to the emergency room complaining of left knee pain and swelling x3 days. Patient states that she had a fall 1 month ago. Patient states that her knee just gave out and she had fallen. Patient reports that she is wearing a knee brace as it does help with her pain instability. Patient states that her knee pain is worse when she gets up in the morning as well as when she sits for long period of time and gets up. Patient does admit that as the day goes on it gets better. Patient also complains of left eye redness x2 days. Patient denies any visual change no eye pain no purulent discharge no matting eyelashes. Patient does have a past medical history of lower back pain with radiation she has had hardware in her right leg and ankle and right knee surgery and a tubal ligation. - Exam Vital Signs: Vital Signs 04/14/19 09:36 Temperature 98.3 F Pulse Rate 70 Respiratory 16 Rate Blood Pressure 115/78 O2 Sat by Pulse 99 Oximetry Physical Exam: Patient is alert and oriented x3 no acute distress. Left eye scleral hemorrhage to the medial corner, EOMI PERRL Left knee in a knee brace no tenderness able to ambulate. MSE screening note: Focused history and physical exam performed. Due to findings the following was ordered: 49-year-old -[place] female presents to the emergency room complaining of left knee pain and swelling x3 days. Patient states that she had a fall 1 month ago. Patient states that her knee just gave out and she had fallen. Patient reports that she is wearing a knee brace as it does help with her pain instability. Patient states that her knee pain is worse when she gets up in the morning as well as when she sits for long period of time and gets up. Patient does admit that as the day goes on it gets better. Patient also complains of left eye redness x2 days. Patient denies any visual change no eye pain no purulent discharge no matting eyelashes. Patient does have a past medical history of lower back pain with radiation she has had hardware in her right leg and ankle and right knee surgery and a tubal ligation. Discussed with patient her left eye hemorrhage will dissipate over a few days to a week. Left knee continue wearing the brace and follow-up with orthopedic provider. ED Disposition for MSE Clinical Impression: Conjunctival hemorrhage, right eye, Knee pain, acute Disposition: MED SCREENING EXAM-LEFT Is pt being admited?: No Does the pt Need Aspirin: No Condition: Stable Instructions: Lumbar Radiculopathy (ED) Additional Instructions: Recommend for you to follow-up at orthopedic provider. As far as your left eye the hemorrhage will eventually clear up in a few days to a week. Follow-up with an medical van driver if you have any further concerns. You can take Tylenol for pain of your knee. Referrals: PRIMARY CARE, [Primary Care Provider] - 3-5 Days JADON JAVIER MD [Staff Physician] - 3-5 Days Forms: Work/School Release Form(ED)
== END 2019-04-14 12:52 | disposition left against medical advice (07) ==
LOC: ED 09:32
DX: H11.31 Conjunctival hemorrhage, right eye (principal); M25.462 Effusion, left knee; Z88.6 Allergy status to analgesic agent; Z98.51 Tubal ligation status
CPT/HCPCS: 99281

== ENCOUNTER 2019-08-27 06:28 | Emergency (ER) | payer OTHER ==
[2019-08-27 06:50] VITALS: BP 116/83
--- NOTE | 2019-08-27 07:27 | XRay Report ---
LEFT FOOT 3 VIEWS INDICATION / CLINICAL INFORMATION: Left foot pain and swelling COMPARISON: None available. FINDINGS: BONES / JOINT(S): No acute fracture or subluxation. No significant arthritis. SOFT TISSUES: No significant abnormality. ADDITIONAL FINDINGS: None. IMPRESSION: Negative study. Signer Name: Dago Canseco MD Signed: 08/27/2019 7:23 AM Workstation Name: [id number]
--- NOTE | 2019-08-27 11:18 | Emergency Department Report ---
ED Lower Extremity HPI - General Chief Complaint: Extremity Injury, Lower Stated Complaint: LFT FOOT INJURY Time Seen by Provider: 08/27/19 10:14 Source: patient Mode of arrival: Ambulatory Limitations: No Limitations - History of Present Illness Initial Comments: 49-year-old F [place] female was walking at work and getting off of an elevator when she lost her footing causing her left foot to have an inversion type injury that was followed by pain and swelling to the lateral aspect of the foot. Pain is worse with palpation and ambulation and range of motion. No numbness or tingling was present. - Related Data Previous Rx's Medication Instructions Recorded Last Taken Type Ibuprofen [Motrin 800 MG tab] 800 mg PO Q8HR PRN #30 tablet 06/18/16 Unknown Rx traMADoL [Ultram 50 MG tab] 50 mg PO Q6HR PRN 12 Days #15 09/02/17 Unknown Rx tablet Chlorhexidine Mouthwash [Peridex] 15 ml MM BID #1 bottle 09/09/17 Unknown Rx Clindamycin [Clindamycin CAP] 300 mg PO Q6H #40 capsule 09/09/17 Unknown Rx traMADoL [Ultram] 50 mg PO Q6HR PRN #15 tablet 09/09/17 Unknown Rx Tizanidine HCl [Zanaflex 4mg CAP] 4 mg PO TID PRN #12 capsule 09/25/17 Unknown Rx traMADoL [Ultram 50 MG tab] 50 mg PO Q4HR PRN #12 tablet 09/25/17 Unknown Rx Ibuprofen [Motrin 600 MG tab] 600 mg PO Q8H PRN #15 tablet 11/25/17 Unknown Rx Butalb/Acetaminophen/Caffeine 1 cap PO Q6HR PRN #15 cap 11/29/17 Unknown Rx [Fioricet 50-300-40 mg CAP] Methocarbamol [Robaxin-750] 750 mg PO TID #20 tablet 01/11/18 Unknown Rx predniSONE [Deltasone] 20 mg PO QDAY #7 tab 01/11/18 Unknown Rx Cyclobenzaprine [Flexeril 10mg] 10 mg PO Q12H PRN #14 tablet 01/19/18 Unknown Rx cephALEXin [Keflex] 500 mg PO Q8HR 7 Days #14 cap 01/19/18 Unknown Rx traMADoL [Ultram 50 MG tab] 50 mg PO Q6HR PRN #20 tablet 01/19/18 Unknown Rx Acetaminophen [Tylenol Extra 1,000 mg PO QID PRN #60 tablet 01/26/18 Unknown Rx Strength] Diclofenac Sodium [Voltaren] 1 applicatio TP TID PRN #1 tube 01/26/18 Unknown Rx Cyclobenzaprine [Flexeril 10 MG 10 mg PO TID PRN #10 tablet 02/18/18 Unknown Rx TAB] Acetaminophen [Tylenol Extra 1,000 mg PO QID PRN #30 tablet 02/22/18 Unknown Rx Strength] Cephalexin [Keflex] 500 mg PO TID 10 Days #30 capsule 02/22/18 Unknown Rx Chlorhexidine Gluconate [Hibiclens] 10 ml TP BID #240 liquid 02/26/18 Unknown Rx Clotrimazole/Betamethasone Dip 1 applicatio TP BID #1 cream..g. 02/26/18 Unknown Rx [Lotrisone Cream] cephALEXin [Keflex] 500 mg PO Q6HR #40 capsule 02/26/18 Unknown Rx Sulfamethoxazole/Trimethoprim 1 each PO BID #20 tablet 03/14/19 Unknown Rx [Bactrim DS TAB] Tobramycin [Tobrex] 1 drop OP Q4H #1 bottle 03/14/19 Unknown Rx guaiFENesin/CODEINE [Robitussin AC] 5 ml PO Q6H PRN #120 ml 03/14/19 Unknown Rx metroNIDAZOLE [Flagyl] 500 mg PO Q12HR #14 tab 03/14/19 Unknown Rx Allergies Allergy/AdvReac Type Severity Reaction Status Date / Time naproxen [From Naprosyn] Allergy Rash Verified 03/26/18 11:09 ED Review of Systems ROS: Stated complaint: LFT FOOT INJURY Other details as noted in HPI Comment: All other systems reviewed and negative ED Past Medical Hx - Past Medical History Previous Medical History?: Yes Hx Headaches / Migraines: Yes Hx Psychiatric Treatment: Yes (depression) Additional medical history: Lower back pain with radiation - Surgical History Past Surgical History?: Yes Additional Surgical History: Hardware in right leg and ankle. right knee surgery. TUBAL LIGATION - Social History Smoking Status: Never Smoker Substance Use Type: None - Medications Home Medications: Home Medications Medication Instructions Recorded Confirmed Last Taken Type Ibuprofen [Motrin 800 MG tab] 800 mg PO Q8HR PRN #30 tablet 05/02/17 Unknown Rx traMADoL [Ultram 50 MG tab] 50 mg PO Q6HR PRN 12 Days #15 09/02/17 Unknown Rx tablet Chlorhexidine Mouthwash [Peridex] 15 ml MM BID #1 bottle 09/09/17 Unknown Rx Clindamycin [Clindamycin CAP] 300 mg PO Q6H #40 capsule 09/09/17 Unknown Rx traMADoL [Ultram] 50 mg PO Q6HR PRN #15 tablet 09/09/17 Unknown Rx Tizanidine HCl [Zanaflex 4mg CAP] 4 mg PO TID PRN #12 capsule 09/25/17 Unknown Rx traMADoL [Ultram 50 MG tab] 50 mg PO Q4HR PRN #12 tablet 09/25/17 Unknown Rx Ibuprofen [Motrin 600 MG tab] 600 mg PO Q8H PRN #15 tablet 11/25/17 Unknown Rx Butalb/Acetaminophen/Caffeine 1 cap PO Q6HR PRN #15 cap 11/29/17 Unknown Rx [Fioricet 50-300-40 mg CAP] Methocarbamol [Robaxin-750] 750 mg PO TID #20 tablet 01/11/18 Unknown Rx predniSONE [Deltasone] 20 mg PO QDAY #7 tab 01/11/18 Unknown Rx Cyclobenzaprine [Flexeril 10mg] 10 mg PO Q12H PRN #14 tablet 01/19/18 Unknown Rx cephALEXin [Keflex] 500 mg PO Q8HR 7 Days #14 cap 01/19/18 Unknown Rx traMADoL [Ultram 50 MG tab] 50 mg PO Q6HR PRN #20 tablet 01/19/18 Unknown Rx Acetaminophen [Tylenol Extra 1,000 mg PO QID PRN #60 tablet 01/26/18 Unknown Rx Strength] Diclofenac Sodium [Voltaren] 1 applicatio TP TID PRN #1 tube 01/26/18 Unknown Rx Cyclobenzaprine [Flexeril 10 MG 10 mg PO TID PRN #10 tablet 02/18/18 Unknown Rx TAB] Acetaminophen [Tylenol Extra 1,000 mg PO QID PRN #30 tablet 02/22/18 Unknown Rx Strength] Cephalexin [Keflex] 500 mg PO TID 10 Days #30 capsule 02/22/18 Unknown Rx Chlorhexidine Gluconate [Hibiclens] 10 ml TP BID #240 liquid 02/26/18 Unknown Rx Clotrimazole/Betamethasone Dip 1 applicatio TP BID #1 cream..g. 02/26/18 Unknown Rx [Lotrisone Cream] cephALEXin [Keflex] 500 mg PO Q6HR #40 capsule 02/26/18 Unknown Rx Sulfamethoxazole/Trimethoprim 1 each PO BID #20 tablet 03/14/19 Unknown Rx [Bactrim DS TAB] Tobramycin [Tobrex] 1 drop OP Q4H #1 bottle 03/14/19 Unknown Rx guaiFENesin/CODEINE [Robitussin AC] 5 ml PO Q6H PRN #120 ml 03/14/19 Unknown Rx metroNIDAZOLE [Flagyl] 500 mg PO Q12HR #14 tab 03/14/19 Unknown Rx ED Physical Exam - General Limitations: No Limitations - Extremities Exam Extremities exam: Present: tenderness, joint swelling - Expanded Lower Extremity Exam Left Ankle exam: Present: tenderness. Absent: anterior draw sign (Normal) Foot/Toe exam: Present: tenderness, swelling. Absent: puncture wound, foreign body, calcaneal tenderness, tenderness at base of 5th metatarsal Neuro vascular tendon exam: Present: no vascular compromise Gait: Positive: observed and limited by pain 1 - Area of tenderness with mild swelling. No bruising noted. 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 FINDINGS: BONES / JOINT(S): No acute fracture or subluxation. No significant arthritis. SOFT TISSUES: No significant abnormality. ADDITIONAL FINDINGS: None. IMPRESSION: Negative study. Signer Name: Dago Canseco MD Signed: 08/27/2019 6:23 AM Workstation Name: [id number] Critical care attestation.: If time is entered above; I have spent that time in minutes in the direct care of this critically ill patient, excluding procedure time. ED Disposition Clinical Impression: Strain of foot, left Disposition: DC-01 TO HOME OR SELFCARE Is pt being admited?: No Does the pt Need Aspirin: No Condition: Stable Instructions: Ankle Exercises (GEN), RICE Therapy (ED), Ice Pack Application (ED) Referrals: PRIMARY CARE, [Primary Care Provider] - 3-5 Days Forms: Work/School Release Form
== END 2019-08-27 12:46 | disposition home or self-care (01) ==
LOC: ED 06:28
DX: S96.912A Strain of unspecified muscle and tendon at ankle and foot level, left foot, initial encounter (principal); G43.909 Migraine, unspecified, not intractable, without status migrainosus; F32.9 Major depressive disorder, single episode, unspecified; Z98.51 Tubal ligation status; Z98.890 Other specified postprocedural states; Z79.899 Other long term (current) drug therapy; Z79.1 Long term (current) use of non-steroidal anti-inflammatories (NSAID); Z79.2 Long term (current) use of antibiotics; Z88.8 Allergy status to other drugs, medicaments and biological substances; X58.XXXA Exposure to other specified factors, initial encounter; Y93.89 Activity, other specified; Y92.89 Other specified places as the place of occurrence of the external cause; Y99.8 Other external cause status

== ENCOUNTER 2020-08-06 09:58 | Emergency (ER) | payer OTHER ==
[2020-08-06 11:35] VITALS: BP 123/76
--- NOTE | 2020-08-06 12:03 | Emergency Department Report ---
ED Back Pain/Injury HPI - General Chief Complaint: Back Pain/Injury Stated Complaint: BACK PAIN Time Seen by Provider: 08/06/20 11:50 Source: patient Limitations: No Limitations - History of Present Illness Initial Comments: Patient is a 50-year-old female presents emergency room complaints of left lower back pain that exacerbated yesterday. Patient states that she has had low back pain for over 6 months. She reports that she had a MRI in February 2020 and reports that it showed arthritis. She states that she just moved back from [place] and has not yet seen a corporate communications specialist in [place]. She states that her pain is worse with movement and stretching. She states that it feels like it is pulling. She denies any fall or injury. She denies any fever, nausea, vomiting, diarrhea, urinary symptoms, numbness, weakness, bowel or bladder incontinence. She has an allergy to naproxen but is able to tolerate other NSAIDs. Past medical history of migraines and depression. - Related Data Previous Rx's Medication Instructions Recorded Last Taken Type Ibuprofen [Motrin 800 MG tab] 800 mg PO Q8HR PRN #30 tablet 06/18/16 Unknown Rx traMADoL [Ultram 50 MG tab] 50 mg PO Q6HR PRN 12 Days #15 09/02/17 Unknown Rx tablet Chlorhexidine Mouthwash [Peridex] 15 ml MM BID #1 bottle 09/09/17 Unknown Rx Clindamycin [Clindamycin CAP] 300 mg PO Q6H #40 capsule 09/09/17 Unknown Rx traMADoL [Ultram] 50 mg PO Q6HR PRN #15 tablet 09/09/17 Unknown Rx Tizanidine HCl [Zanaflex 4mg CAP] 4 mg PO TID PRN #12 capsule 09/25/17 Unknown Rx traMADoL [Ultram 50 MG tab] 50 mg PO Q4HR PRN #12 tablet 09/25/17 Unknown Rx Ibuprofen [Motrin 600 MG tab] 600 mg PO Q8H PRN #15 tablet 11/25/17 Unknown Rx Butalb/Acetaminophen/Caffeine 1 cap PO Q6HR PRN #15 cap 11/29/17 Unknown Rx [Fioricet 50-300-40 mg CAP] methocarbamoL [Robaxin-750] 750 mg PO TID #20 tablet 01/11/18 Unknown Rx predniSONE [Deltasone] 20 mg PO QDAY #7 tab 01/11/18 Unknown Rx Cyclobenzaprine [Flexeril 10mg] 10 mg PO Q12H PRN #14 tablet 01/19/18 Unknown Rx cephALEXin [Keflex] 500 mg PO Q8HR 7 Days #14 cap 01/19/18 Unknown Rx traMADoL [Ultram 50 MG tab] 50 mg PO Q6HR PRN #20 tablet 01/19/18 Unknown Rx Acetaminophen [Tylenol Extra 1,000 mg PO QID PRN #60 tablet 01/26/18 Unknown Rx Strength] Diclofenac Sodium [Voltaren] 1 applicatio TP TID PRN #1 tube 01/26/18 Unknown Rx Cyclobenzaprine [Flexeril 10 MG 10 mg PO TID PRN #10 tablet 02/18/18 Unknown Rx TAB] Acetaminophen [Tylenol Extra 1,000 mg PO QID PRN #30 tablet 02/22/18 Unknown Rx Strength] cephALEXin [Keflex] 500 mg PO TID 10 Days #30 capsule 02/22/18 Unknown Rx Chlorhexidine Gluconate [Hibiclens] 10 ml TP BID #240 liquid 02/26/18 Unknown Rx Clotrimazole/Betamethasone Dip 1 applicatio TP BID #1 cream..g. 02/26/18 Unknown Rx [Lotrisone Cream] cephALEXin [Keflex] 500 mg PO Q6HR #40 capsule 02/26/18 Unknown Rx Sulfamethoxazole/Trimethoprim 1 each PO BID #20 tablet 03/14/19 Unknown Rx [Bactrim DS TAB] Tobramycin [Tobrex] 1 drop OP Q4H #1 bottle 03/14/19 Unknown Rx guaiFENesin/CODEINE [Robitussin AC] 5 ml PO Q6H PRN #120 ml 03/14/19 Unknown Rx metroNIDAZOLE [Flagyl] 500 mg PO Q12HR #14 tab 03/14/19 Unknown Rx Meloxicam [Mobic] 7.5 mg PO QDAY #14 tablet 08/06/20 Unknown Rx Menthol/Camphor [[place] 1 applicatio TP BID #18 oint...g. 08/06/20 Unknown Rx Ointment] methOCARBAMOL [Robaxin TAB] 500 mg PO BID PRN #20 tab 08/06/20 Unknown Rx Allergies Allergy/AdvReac Type Severity Reaction Status Date / Time naproxen [From Naprosyn] Allergy Rash Verified 03/26/18 11:09 ED Review of Systems ROS: Stated complaint: BACK PAIN Other details as noted in HPI Comment: All other systems reviewed and negative ED Past Medical Hx - Past Medical History Previous Medical History?: Yes Hx Headaches / Migraines: Yes Hx Psychiatric Treatment: Yes (depression) Additional medical history: Lower back pain with radiation - Surgical History Past Surgical History?: Yes Additional Surgical History: Hardware in right leg and ankle. right knee surgery. TUBAL LIGATION - Social History Smoking Status: Never Smoker Substance Use Type: Prescribed - Medications Home Medications: Home Medications Medication Instructions Recorded Confirmed Last Taken Type Ibuprofen [Motrin 800 MG tab] 800 mg PO Q8HR PRN #30 tablet 06/18/16 Unknown Rx traMADoL [Ultram 50 MG tab] 50 mg PO Q6HR PRN 12 Days #15 09/02/17 Unknown Rx tablet Chlorhexidine Mouthwash [Peridex] 15 ml MM BID #1 bottle 09/09/17 Unknown Rx Clindamycin [Clindamycin CAP] 300 mg PO Q6H #40 capsule 09/09/17 Unknown Rx traMADoL [Ultram] 50 mg PO Q6HR PRN #15 tablet 09/09/17 Unknown Rx Tizanidine HCl [Zanaflex 4mg CAP] 4 mg PO TID PRN #12 capsule 09/25/17 Unknown Rx traMADoL [Ultram 50 MG tab] 50 mg PO Q4HR PRN #12 tablet 09/25/17 Unknown Rx Ibuprofen [Motrin 600 MG tab] 600 mg PO Q8H PRN #15 tablet 11/25/17 Unknown Rx Butalb/Acetaminophen/Caffeine 1 cap PO Q6HR PRN #15 cap 11/29/17 Unknown Rx [Fioricet 50-300-40 mg CAP] methocarbamoL [Robaxin-750] 750 mg PO TID #20 tablet 01/11/18 Unknown Rx predniSONE [Deltasone] 20 mg PO QDAY #7 tab 01/11/18 Unknown Rx Cyclobenzaprine [Flexeril 10mg] 10 mg PO Q12H PRN #14 tablet 01/19/18 Unknown Rx cephALEXin [Keflex] 500 mg PO Q8HR 7 Days #14 cap 01/19/18 Unknown Rx traMADoL [Ultram 50 MG tab] 50 mg PO Q6HR PRN #20 tablet 01/19/18 Unknown Rx Acetaminophen [Tylenol Extra 1,000 mg PO QID PRN #60 tablet 01/26/18 Unknown Rx Strength] Diclofenac Sodium [Voltaren] 1 applicatio TP TID PRN #1 tube 01/26/18 Unknown Rx Cyclobenzaprine [Flexeril 10 MG 10 mg PO TID PRN #10 tablet 02/18/18 Unknown Rx TAB] Acetaminophen [Tylenol Extra 1,000 mg PO QID PRN #30 tablet 02/22/18 Unknown Rx Strength] cephALEXin [Keflex] 500 mg PO TID 10 Days #30 capsule 02/22/18 Unknown Rx Chlorhexidine Gluconate [Hibiclens] 10 ml TP BID #240 liquid 02/26/18 Unknown Rx Clotrimazole/Betamethasone Dip 1 applicatio TP BID #1 cream..g. 02/26/18 Unknown Rx [Lotrisone Cream] cephALEXin [Keflex] 500 mg PO Q6HR #40 capsule 02/26/18 Unknown Rx Sulfamethoxazole/Trimethoprim 1 each PO BID #20 tablet 03/14/19 Unknown Rx [Bactrim DS TAB] Tobramycin [Tobrex] 1 drop OP Q4H #1 bottle 03/14/19 Unknown Rx guaiFENesin/CODEINE [Robitussin AC] 5 ml PO Q6H PRN #120 ml 03/14/19 Unknown Rx metroNIDAZOLE [Flagyl] 500 mg PO Q12HR #14 tab 03/14/19 Unknown Rx Meloxicam [Mobic] 7.5 mg PO QDAY #14 tablet 08/06/20 Unknown Rx Menthol/Camphor [[place] 1 applicatio TP BID #18 oint...g. 08/06/20 Unknown Rx Ointment] methOCARBAMOL [Robaxin TAB] 500 mg PO BID PRN #20 tab 08/06/20 Unknown Rx ED Physical Exam - General Limitations: No Limitations General appearance: alert, in no apparent distress - Head Head exam: Present: atraumatic, normocephalic - Eye Eye exam: Present: normal appearance - ENT ENT exam: Present: mucous membranes moist - Neck Neck exam: Present: normal inspection, full ROM. Absent: tenderness, meningismus - Respiratory Respiratory exam: Present: normal lung sounds bilaterally. Absent: respiratory distress, wheezes, rales, rhonchi, stridor, chest wall tenderness, accessory muscle use, decreased breath sounds, prolonged expiratory - Cardiovascular Cardiovascular Exam: Present: regular rate, normal rhythm, normal heart sounds. Absent: systolic murmur, diastolic murmur, rubs, gallop - Back Exam Back exam: Present: normal inspection, full ROM, paraspinal tenderness (left lumbar paraspinal ttp, no midline C-spine, T-spine or L-spine ttp, no step offs, no deformities). Absent: vertebral tenderness - Neurological Exam Neurological exam: Present: alert, oriented X3, CN II-XII intact, normal gait. Absent: motor sensory deficit - Psychiatric Psychiatric exam: Present: normal affect, normal mood - Skin Skin exam: Present: warm, dry, intact ED Course Vital Signs 08/06/20 11:33 Temperature 98.9 F Pulse Rate 64 Respiratory 18 Rate Blood Pressure 123/76 O2 Sat by Pulse 100 Oximetry ED Medical Decision Making - Medical Decision Making Patient is a 50-year-old female presents emergency room complaints of left lower back pain that exacerbated yesterday. Patient states that she has had low back pain for over 6 months. She reports that she had a MRI in February 2020 and reports that it showed arthritis. She states that she just moved back from [place] and has not yet seen a corporate communications specialist in [place]. She states that her pain is worse with movement and stretching. She states that it feels like it is pulling. She denies any fall or injury. She denies any fever, nausea, vomiting, diarrhea, urinary symptoms, numbness, weakness, bowel or bladder incontinence. She has an allergy to naproxen but is able to tolerate other NSAIDs. Past medical history of migraines and depression. vitals are normal. on exam:left lumbar paraspinal ttp, no midline C-spine, T-spine or L-spine ttp, no step offs, no deformities, no focal neuro deficits, normal gait. Patient has no red flag warning signs of back pain, no trauma, no unexplained weight loss, no fever, no IV drug use, no steroid use, no history of cancer, no neuro deficit, age is not greater than 50. Patient has no clinical signs of conus medullaris or cauda equina. Symptoms could be related to muscle strain versus exacerbation of her chronic back pain from arthritis. Patient given prescription for medications. Advised patient Please use medication as prescribed as needed. Do not drive or operate machinery while taking muscle relaxer Robaxin. May use ice pack, heating pad, rest, and epsom salt bath. Do not use ointment while using heat or ice. Follow-up with a spine doctor. Follow-up with a primary care doctor. Return to emergency room for new or worsening symptoms. Critical care attestation.: If time is entered above; I have spent that time in minutes in the direct care o f this critically ill patient, excluding procedure time. ED Disposition Clinical Impression: Low back pain Qualifiers: Chronicity: acute Back pain laterality: left Sciatica presence: without sciatica Qualified Code(s): M54.5 - Low back pain Disposition: - TO HOME OR SELFCARE Is pt being admited?: No Does the pt Need Aspirin: No Condition: Stable Instructions: Lumbar Strain Additional Instructions: Please use medication as prescribed as needed. Do not drive or operate machinery while taking muscle relaxer Robaxin. May use ice pack, heating pad, rest, and epsom salt bath. Do not use ointment while using heat or ice. Follow-up with a spine doctor. Follow-up with a primary care doctor. Return to emergency room for new or worsening symptoms. Prescriptions: Meloxicam [Mobic] 7.5 mg PO QDAY #14 tablet methOCARBAMOL [Robaxin TAB] 500 mg PO BID PRN #20 tab PRN Reason: muscle spasm/pain Menthol/Camphor [[place] Ointment] 1 applicatio TP BID #18 oint...g. Referrals: GELY OLIVEROS II, MD [Staff Physician] - 2-3 Days [facility] [Provider Group] - 2-3 Days CHAO MARTINEZ MD [Staff Physician] - 2-3 Days Time of Disposition: 12:01 Print Language: LAO
== END 2020-08-06 12:49 | disposition home or self-care (01) ==
LOC: ED 09:58
DX: M54.5 Low back pain (principal); G43.909 Migraine, unspecified, not intractable, without status migrainosus; F32.9 Major depressive disorder, single episode, unspecified; Z98.890 Other specified postprocedural states; Z98.51 Tubal ligation status; Z79.899 Other long term (current) drug therapy; Z88.8 Allergy status to other drugs, medicaments and biological substances
CPT/HCPCS: 99282

== ENCOUNTER 2020-08-07 07:19 | Emergency (ER) | payer OTHER ==
[2020-08-07] MEDS ORDERED: SODIUM CHLORIDE 0.9% 1000 ML 1,000 ML IV ONE (08:53)
[2020-08-07] MEDS ORDERED: KETOROLAC 30 MG/1 ML INJ IV ONE (08:53)
[2020-08-07] MEDS ORDERED: METOCLOPRAMIDE 10 MG/2 ML INJ IV ONE (08:53)
--- NOTE | 2020-08-07 08:57 | Emergency Department Report ---
ED Headache HPI - General Chief Complaint: Headache Stated Complaint: HEADACHE Time Seen by Provider: 08/07/20 08:47 - History of Present Illness Initial Comments: 50-year-old -Finnish female presents to the emergency room for a constant migraine headache that started yesterday. Patient states that she has been having intermittent to constant migraines for several months. Patient states that she relocated from [facility] to [facility]. Patient denies this is the worst headache of her life. She denies any neck stiffness no fever no chills no vomiting. Patient does admit to nausea. Patient denies any recent trauma. Patient states she can take Toradol and ibuprofen. Timing/Duration: 24 hours Quality: moderate Head Injury Location: global Recent Head Trauma: frequent headaches, chronic headaches Modifying Factors: improves with: exposure to light Associated Symptoms: nausea/vomiting (No vomiting). denies: confusion, fatigue, facial pain, fever/chills, nasal congestion, nasal drainage, seizures, sinus infection, stiff neck, vision changes, weakness Allergies/Adverse Reactions: Allergies naproxen [From Naprosyn] Allergy (Verified 03/26/18 11:09) Rash Home Medications: Ambulatory Orders Ibuprofen [Motrin 800 MG tab] 800 mg PO Q8HR PRN #30 tablet 06/18/16 traMADoL [Ultram 50 MG tab] 50 mg PO Q6HR PRN 12 Days #15 tablet 09/02/17 Chlorhexidine Mouthwash [Peridex] 15 ml MM BID #1 bottle 09/09/17 Clindamycin [Clindamycin CAP] 300 mg PO Q6H #40 capsule 09/09/17 traMADoL [Ultram] 50 mg PO Q6HR PRN #15 tablet 09/09/17 Tizanidine HCl [Zanaflex 4mg CAP] 4 mg PO TID PRN #12 capsule 09/25/17 traMADoL [Ultram 50 MG tab] 50 mg PO Q4HR PRN #12 tablet 09/25/17 Ibuprofen [Motrin 600 MG tab] 600 mg PO Q8H PRN #15 tablet 11/25/17 Butalb/Acetaminophen/Caffeine [Fioricet 50-300-40 mg CAP] 1 cap PO Q6HR PRN #15 cap 11/29/17 methocarbamoL [Robaxin-750] 750 mg PO TID #20 tablet 01/11/18 predniSONE [Deltasone] 20 mg PO QDAY #7 tab 01/11/18 Cyclobenzaprine [Flexeril 10mg] 10 mg PO Q12H PRN #14 tablet 01/19/18 cephALEXin [Keflex] 500 mg PO Q8HR 7 Days #14 cap 01/19/18 traMADoL [Ultram 50 MG tab] 50 mg PO Q6HR PRN #20 tablet 01/19/18 Acetaminophen [Tylenol Extra Strength] 1,000 mg PO QID PRN #60 tablet 01/26/18 Diclofenac Sodium [Voltaren] 1 applicatio TP TID PRN #1 tube 01/26/18 Cyclobenzaprine [Flexeril 10 MG TAB] 10 mg PO TID PRN #10 tablet 02/18/18 Acetaminophen [Tylenol Extra Strength] 1,000 mg PO QID PRN #30 tablet 02/22/18 cephALEXin [Keflex] 500 mg PO TID 10 Days #30 capsule 02/22/18 Chlorhexidine Gluconate [Hibiclens] 10 ml TP BID #240 liquid 02/26/18 Clotrimazole/Betamethasone Dip [Lotrisone Cream] 1 applicatio TP BID #1 cream..g. 02/26/18 cephALEXin [Keflex] 500 mg PO Q6HR #40 capsule 02/26/18 Sulfamethoxazole/Trimethoprim [Bactrim DS TAB] 1 each PO BID #20 tablet 03/14/19 Tobramycin [Tobrex] 1 drop OP Q4H #1 bottle 03/14/19 guaiFENesin/CODEINE [Robitussin AC] 5 ml PO Q6H PRN #120 ml 03/14/19 metroNIDAZOLE [Flagyl] 500 mg PO Q12HR #14 tab 03/14/19 Meloxicam [Mobic] 7.5 mg PO QDAY #14 tablet 08/06/20 Menthol/Camphor [[place] Ointment] 1 applicatio TP BID #18 oint...g. 08/06/20 methOCARBAMOL [Robaxin TAB] 500 mg PO BID PRN #20 tab 08/06/20 Ondansetron [Zofran Odt] 4 mg PO Q8HR PRN #12 tab.rapdis 08/07/20 SUMAtriptan succinate [Imitrex] 25 mg PO Q4H PRN #12 tablet 08/07/20 ED Review of Systems ROS: Stated complaint: HEADACHE Other details as noted in HPI Comment: All other systems reviewed and negative ED Past Medical Hx - Past Medical History Previous Medical History?: Yes Hx Headaches / Migraines: Yes Hx Psychiatric Treatment: Yes (depression) Additional medical history: Lower back pain with radiation - Surgical History Past Surgical History?: Yes Additional Surgical History: Hardware in right leg and ankle. right knee surgery. TUBAL LIGATION - Social History Smoking Status: Never Smoker Substance Use Type: None - Medications Home Medications: Home Medications Medication Instructions Recorded Confirmed Last Taken Type Ibuprofen [Motrin 800 MG tab] 800 mg PO Q8HR PRN #30 tablet 06/18/16 Unknown Rx traMADoL [Ultram 50 MG tab] 50 mg PO Q6HR PRN 12 Days #15 09/02/17 Unknown Rx tablet Chlorhexidine Mouthwash [Peridex] 15 ml MM BID #1 bottle 09/09/17 Unknown Rx Clindamycin [Clindamycin CAP] 300 mg PO Q6H #40 capsule 09/09/17 Unknown Rx traMADoL [Ultram] 50 mg PO Q6HR PRN #15 tablet 09/09/17 Unknown Rx Tizanidine HCl [Zanaflex 4mg CAP] 4 mg PO TID PRN #12 capsule 09/25/17 Unknown Rx traMADoL [Ultram 50 MG tab] 50 mg PO Q4HR PRN #12 tablet 09/25/17 Unknown Rx Ibuprofen [Motrin 600 MG tab] 600 mg PO Q8H PRN #15 tablet 11/25/17 Unknown Rx Butalb/Acetaminophen/Caffeine 1 cap PO Q6HR PRN #15 cap 11/29/17 Unknown Rx [Fioricet 50-300-40 mg CAP] methocarbamoL [Robaxin-750] 750 mg PO TID #20 tablet 01/11/18 Unknown Rx predniSONE [Deltasone] 20 mg PO QDAY #7 tab 01/11/18 Unknown Rx Cyclobenzaprine [Flexeril 10mg] 10 mg PO Q12H PRN #14 tablet 01/19/18 Unknown Rx cephALEXin [Keflex] 500 mg PO Q8HR 7 Days #14 cap 01/19/18 Unknown Rx traMADoL [Ultram 50 MG tab] 50 mg PO Q6HR PRN #20 tablet 01/19/18 Unknown Rx Acetaminophen [Tylenol Extra 1,000 mg PO QID PRN #60 tablet 01/26/18 Unknown Rx Strength] Diclofenac Sodium [Voltaren] 1 applicatio TP TID PRN #1 tube 01/26/18 Unknown Rx Cyclobenzaprine [Flexeril 10 MG 10 mg PO TID PRN #10 tablet 02/18/18 Unknown Rx TAB] Acetaminophen [Tylenol Extra 1,000 mg PO QID PRN #30 tablet 02/22/18 Unknown Rx Strength] cephALEXin [Keflex] 500 mg PO TID 10 Days #30 capsule 02/22/18 Unknown Rx Chlorhexidine Gluconate [Hibiclens] 10 ml TP BID #240 liquid 02/26/18 Unknown Rx Clotrimazole/Betamethasone Dip 1 applicatio TP BID #1 cream..g. 02/26/18 Unknown Rx [Lotrisone Cream] cephALEXin [Keflex] 500 mg PO Q6HR #40 capsule 02/26/18 Unknown Rx Sulfamethoxazole/Trimethoprim 1 each PO BID #20 tablet 03/14/19 Unknown Rx [Bactrim DS TAB] Tobramycin [Tobrex] 1 drop OP Q4H #1 bottle 03/14/19 Unknown Rx guaiFENesin/CODEINE [Robitussin AC] 5 ml PO Q6H PRN #120 ml 03/14/19 Unknown Rx metroNIDAZOLE [Flagyl] 500 mg PO Q12HR #14 tab 03/14/19 Unknown Rx Meloxicam [Mobic] 7.5 mg PO QDAY #14 tablet 08/06/20 Unknown Rx Menthol/Camphor [[place] 1 applicatio TP BID #18 oint...g. 08/06/20 Unknown Rx Ointment] methOCARBAMOL [Robaxin TAB] 500 mg PO BID PRN #20 tab 08/06/20 Unknown Rx Ondansetron [Zofran Odt] 4 mg PO Q8HR PRN #12 tab.rapdis 08/07/20 Unknown Rx SUMAtriptan succinate [Imitrex] 25 mg PO Q4H PRN #12 tablet 08/07/20 Unknown Rx ED Physical Exam - General Limitations: No Limitations General appearance: alert, in no apparent distress - Head Head exam: Present: atraumatic, normocephalic - Eye Eye exam: Present: normal appearance - ENT ENT exam: Present: mucous membranes moist - Neck Neck exam: Present: normal inspection - Respiratory Respiratory exam: Present: normal lung sounds bilaterally. Absent: respiratory distress - Cardiovascular Cardiovascular Exam: Present: regular rate, normal rhythm. Absent: systolic murmur, diastolic murmur, rubs, gallop - Extremities Exam Extremities exam: Present: normal inspection, full ROM - Back Exam Back exam: Present: normal inspection - Neurological Exam Neurological exam: Present: alert, oriented X3, normal gait - Expanded Neurological Exam Expanded Neurological exam: Present: protecting the airway Patient oriented to: Present: person, place, time Cranial nerves: EOM's Intact: Normal, Gag Reflex: Normal, Tongue Deviation: Normal, Nystagmus: Normal, Facial Sensation: Normal, Facial Palsy with Forehead Movement: Normal, Facial Palsy without Forehead Movement: Normal Cerebellar function: Finger to Nose: Normal, Heel to Ashraf: Normal, Romberg: Normal Upper motor neuron: Chirag Neglect: Normal, Pronator Drift: Normal, Babinski Sign: Normal, Sensory Extinction: Normal Sensory exam: Upper Extremity Light Touch: Normal, Upper Extremity Pin Prick: Normal, Upper Extremity Temperature: Normal, UE 2 Point Discrimination: Normal, Lower Extremity Light Touch: Normal, Lower Extremity Pin Prick: Normal, Lower Extremity Temperature: Normal, LE 2 Point Discrimination: Normal Motor strength exam: RUE: 4, LUE: 4, RLE: 4, LLE: 4 Best Eye Response (Domenica): (4) open spontaneously Best Motor Response (Domenica): (6) obeys commands Best Verbal Response ([place]): (5) oriented Domenica Total: 15 - Psychiatric Psychiatric exam: Present: normal affect, normal mood - Skin Skin exam: Present: warm, dry, intact, normal color. Absent: rash ED Course Vital Signs 08/07/20 07:31 Temperature 98.4 F Pulse Rate 78 Respiratory 16 Rate Blood Pressure 135/85 [Right] O2 Sat by Pulse 97 Oximetry - Reevaluation(s) Reevaluation #1: 08/07/20 10:05 Patient reports she is starting to feel better. ED Medical Decision Making - Medical Decision Making 50-year-old -Finnish female presents to the emergency room for a constant migraine headache that started yesterday. Patient states that she has been having intermittent to constant migraines for several months. Patient states that she relocated from [facility] to [facility]. Patient denies this is the worst headache of her life. She denies any neck stiffness no fever no chills no vomiting. Patient does admit to nausea. Patient denies any recent trauma. Patient states she can take Toradol and ibuprofen. Toradol, Solu-Medrol and Reglan IV normal saline. Critical care attestation.: If time is entered above; I have spent that time in minutes in the direct care of this critically ill patient, excluding procedure time. ED Disposition Clinical Impression: Migraine Qualifiers: Migraine type: unspecified Status migrainosus presence: with status migrainosus Intractability: intractable Qualified Code(s): G43.911 - Migraine, unspecified, intractable, with status migrainosus Disposition: TO HOME OR SELFCARE Is pt being admited?: No Does the pt Need Aspirin: No Condition: Stable Instructions: Recurrent Migraine Headache, [id number] Additional Instructions: Please take medication as prescribed. Do not consume more than 200 mg of Imitrex in 24 hours. I encourage you to increase your fluid intake. Zofran as needed for the nausea or vomiting. Follow-up with a neurologist or your primary care provider. Prescriptions: SUMAtriptan succinate [Imitrex] 25 mg PO Q4H PRN #12 tablet PRN Reason: Headache Ondansetron [Zofran Odt] 4 mg PO Q8HR PRN #12 tab.rapdis PRN Reason: Nausea And Vomiting Forms: Work/School Release Form(ED)
[2020-08-07 08:58] VITALS: BP 135/85
[2020-08-07] MEDS ORDERED: SUMAtriptan SUCCINATE 25 MG TAB PO ONE (09:30)
== END 2020-08-07 10:40 | disposition home or self-care (01) ==
LOC: ED 07:19
DX: G43.909 Migraine, unspecified, not intractable, without status migrainosus (principal); F32.9 Major depressive disorder, single episode, unspecified; Z98.51 Tubal ligation status; Z88.8 Allergy status to other drugs, medicaments and biological substances; Z79.899 Other long term (current) drug therapy
CPT/HCPCS: 96361; 96374; 96375; 99282; J1885; J2765; J7030

== ENCOUNTER 2020-08-30 16:56 | Emergency (ER) | payer SELFPAY ==
[2020-08-30 17:17] VITALS: BP 137/84
--- NOTE | 2020-08-30 17:45 | XRay Report ---
CHEST 2 VIEWS INDICATION / CLINICAL INFORMATION: cough. COMPARISON: 03/14/2019 FINDINGS: SUPPORT DEVICES: None. HEART / MEDIASTINUM: No significant abnormality. LUNGS / PLEURA: No significant pulmonary or pleural abnormality. No pneumothorax. ADDITIONAL FINDINGS: There is stable elevation of the left hemidiaphragm. IMPRESSION: 1. No acute findings. Signer Name: Vamsi Galan MD Signed: 08/30/2020 5:40 PM Workstation Name: [id number]
--- NOTE | 2020-08-30 17:57 | Emergency Department Report ---
- General Chief Complaint: Upper Respiratory Infection Stated Complaint: BAD COLD Time Seen by Provider: 08/30/20 17:15 Source: patient Mode of arrival: Ambulatory Limitations: No Limitations - History of Present Illness Initial Comments: Patient is a 50-year-old female presents emergency room complaints of URI symptoms that began on 08/21/2020. She has associated dry cough, congestion, chest discomfort after coughing. She denies any fever, nausea, vomiting, diarrhea, sore throat, ear pain, shortness of breath, abdominal pain. She states that she did have a sick contact who had been diagnosed with a cold and ear infection. She denies any recent travel. She states that she has received 2 COVID-19 vaccines. - Related Data Previous Rx's Medication Instructions Recorded Last Taken Type Ibuprofen [Motrin 800 MG tab] 800 mg PO Q8HR PRN #30 tablet 06/18/16 Unknown Rx traMADoL [Ultram 50 MG tab] 50 mg PO Q6HR PRN 12 Days #15 09/02/17 Unknown Rx tablet Chlorhexidine Mouthwash [Peridex] 15 ml MM BID #1 bottle 09/09/17 Unknown Rx Clindamycin [Clindamycin CAP] 300 mg PO Q6H #40 capsule 09/09/17 Unknown Rx traMADoL [Ultram] 50 mg PO Q6HR PRN #15 tablet 09/09/17 Unknown Rx Tizanidine HCl [Zanaflex 4mg CAP] 4 mg PO TID PRN #12 capsule 09/25/17 Unknown Rx traMADoL [Ultram 50 MG tab] 50 mg PO Q4HR PRN #12 tablet 09/25/17 Unknown Rx Ibuprofen [Motrin 600 MG tab] 600 mg PO Q8H PRN #15 tablet 11/25/17 Unknown Rx Butalb/Acetaminophen/Caffeine 1 cap PO Q6HR PRN #15 cap 11/29/17 Unknown Rx [Fioricet 50-300-40 mg CAP] methocarbamoL [Robaxin-750] 750 mg PO TID #20 tablet 01/11/18 Unknown Rx predniSONE [Deltasone] 20 mg PO QDAY #7 tab 01/11/18 Unknown Rx Cyclobenzaprine [Flexeril 10mg] 10 mg PO Q12H PRN #14 tablet 01/19/18 Unknown Rx cephALEXin [Keflex] 500 mg PO Q8HR 7 Days #14 cap 01/19/18 Unknown Rx traMADoL [Ultram 50 MG tab] 50 mg PO Q6HR PRN #20 tablet 01/19/18 Unknown Rx Acetaminophen [Tylenol Extra 1,000 mg PO QID PRN #60 tablet 01/26/18 Unknown Rx Strength] Diclofenac Sodium [Voltaren] 1 applicatio TP TID PRN #1 tube 01/26/18 Unknown Rx Cyclobenzaprine [Flexeril 10 MG 10 mg PO TID PRN #10 tablet 02/18/18 Unknown Rx TAB] Acetaminophen [Tylenol Extra 1,000 mg PO QID PRN #30 tablet 02/22/18 Unknown Rx Strength] cephALEXin [Keflex] 500 mg PO TID 10 Days #30 capsule 02/22/18 Unknown Rx Chlorhexidine Gluconate [Hibiclens] 10 ml TP BID #240 liquid 02/26/18 Unknown Rx Clotrimazole/Betamethasone Dip 1 applicatio TP BID #1 cream..g. 02/26/18 Unknown Rx [Lotrisone Cream] cephALEXin [Keflex] 500 mg PO Q6HR #40 capsule 02/26/18 Unknown Rx Sulfamethoxazole/Trimethoprim 1 each PO BID #20 tablet 03/14/19 Unknown Rx [Bactrim DS TAB] Tobramycin [Tobrex] 1 drop OP Q4H #1 bottle 03/14/19 Unknown Rx guaiFENesin/CODEINE [Robitussin AC] 5 ml PO Q6H PRN #120 ml 03/14/19 Unknown Rx metroNIDAZOLE [Flagyl] 500 mg PO Q12HR #14 tab 03/14/19 Unknown Rx Meloxicam [Mobic] 7.5 mg PO QDAY #14 tablet 08/06/20 Unknown Rx Menthol/Camphor [[place] 1 applicatio TP BID #18 oint...g. 08/06/20 Unknown Rx Ointment] methOCARBAMOL [Robaxin TAB] 500 mg PO BID PRN #20 tab 08/06/20 Unknown Rx Ondansetron [Zofran Odt] 4 mg PO Q8HR PRN #12 tab.rapdis 08/07/20 Unknown Rx SUMAtriptan succinate [Imitrex] 25 mg PO Q4H PRN #12 tablet 08/07/20 Unknown Rx Azithromycin [Zithromax TAB] 250 mg PO QDAY 5 Days #6 tablet 08/30/20 Unknown Rx Benzonatate [Tessalon Perles] 100 mg PO Q8HR PRN #12 capsule 08/30/20 Unknown Rx Prednisone [predniSONE 10 mg 10 mg PO .TAPER #1 tab.ds.pk 08/30/20 Unknown Rx (6-Day Pack, 21 Tabs)] guaiFENesin ER [Mucinex ER] 600 mg PO BID #14 tablet.er 08/30/20 Unknown Rx Allergies Allergy/AdvReac Type Severity Reaction Status Date / Time naproxen [From Naprosyn] Allergy Rash Verified 03/26/18 11:09 ED Review of Systems ROS: Stated complaint: BAD COLD Other details as noted in HPI Comment: All other systems reviewed and negative ED Past Medical Hx - Past Medical History Previous Medical History?: Yes Hx Headaches / Migraines: Yes Hx Psychiatric Treatment: Yes (depression) Additional medical history: Lower back pain with radiation - Surgical History Past Surgical History?: Yes Additional Surgical History: Hardware in right leg and ankle. right knee surgery. TUBAL LIGATION - Social History Substance Use Type: Prescribed - Medications Home Medications: Home Medications Medication Instructions Recorded Confirmed Last Taken Type Ibuprofen [Motrin 800 MG tab] 800 mg PO Q8HR PRN #30 tablet 06/18/16 Unknown Rx traMADoL [Ultram 50 MG tab] 50 mg PO Q6HR PRN 12 Days #15 09/02/17 Unknown Rx tablet Chlorhexidine Mouthwash [Peridex] 15 ml MM BID #1 bottle 09/09/17 Unknown Rx Clindamycin [Clindamycin CAP] 300 mg PO Q6H #40 capsule 09/09/17 Unknown Rx traMADoL [Ultram] 50 mg PO Q6HR PRN #15 tablet 09/09/17 Unknown Rx Tizanidine HCl [Zanaflex 4mg CAP] 4 mg PO TID PRN #12 capsule 09/25/17 Unknown Rx traMADoL [Ultram 50 MG tab] 50 mg PO Q4HR PRN #12 tablet 09/25/17 Unknown Rx Ibuprofen [Motrin 600 MG tab] 600 mg PO Q8H PRN #15 tablet 11/25/17 Unknown Rx Butalb/Acetaminophen/Caffeine 1 cap PO Q6HR PRN #15 cap 11/29/17 Unknown Rx [Fioricet 50-300-40 mg CAP] methocarbamoL [Robaxin-750] 750 mg PO TID #20 tablet 01/11/18 Unknown Rx predniSONE [Deltasone] 20 mg PO QDAY #7 tab 01/11/18 Unknown Rx Cyclobenzaprine [Flexeril 10mg] 10 mg PO Q12H PRN #14 tablet 01/19/18 Unknown Rx cephALEXin [Keflex] 500 mg PO Q8HR 7 Days #14 cap 01/19/18 Unknown Rx traMADoL [Ultram 50 MG tab] 50 mg PO Q6HR PRN #20 tablet 01/19/18 Unknown Rx Acetaminophen [Tylenol Extra 1,000 mg PO QID PRN #60 tablet 01/26/18 Unknown Rx Strength] Diclofenac Sodium [Voltaren] 1 applicatio TP TID PRN #1 tube 01/26/18 Unknown Rx Cyclobenzaprine [Flexeril 10 MG 10 mg PO TID PRN #10 tablet 02/18/18 Unknown Rx TAB] Acetaminophen [Tylenol Extra 1,000 mg PO QID PRN #30 tablet 02/22/18 Unknown Rx Strength] cephALEXin [Keflex] 500 mg PO TID 10 Days #30 capsule 02/22/18 Unknown Rx Chlorhexidine Gluconate [Hibiclens] 10 ml TP BID #240 liquid 02/26/18 Unknown Rx Clotrimazole/Betamethasone Dip 1 applicatio TP BID #1 cream..g. 02/26/18 Unknown Rx [Lotrisone Cream] cephALEXin [Keflex] 500 mg PO Q6HR #40 capsule 02/26/18 Unknown Rx Sulfamethoxazole/Trimethoprim 1 each PO BID #20 tablet 03/14/19 Unknown Rx [Bactrim DS TAB] Tobramycin [Tobrex] 1 drop OP Q4H #1 bottle 03/14/19 Unknown Rx guaiFENesin/CODEINE [Robitussin AC] 5 ml PO Q6H PRN #120 ml 03/14/19 Unknown Rx metroNIDAZOLE [Flagyl] 500 mg PO Q12HR #14 tab 03/14/19 Unknown Rx Meloxicam [Mobic] 7.5 mg PO QDAY #14 tablet 08/06/20 Unknown Rx Menthol/Camphor [[place] 1 applicatio TP BID #18 oint...g. 08/06/20 Unknown Rx Ointment] methOCARBAMOL [Robaxin TAB] 500 mg PO BID PRN #20 tab 08/06/20 Unknown Rx Ondansetron [Zofran Odt] 4 mg PO Q8HR PRN #12 tab.rapdis 08/07/20 Unknown Rx SUMAtriptan succinate [Imitrex] 25 mg PO Q4H PRN #12 tablet 08/07/20 Unknown Rx Azithromycin [Zithromax TAB] 250 mg PO QDAY 5 Days #6 tablet 08/30/20 Unknown Rx Benzonatate [Tessalon Perles] 100 mg PO Q8HR PRN #12 capsule 08/30/20 Unknown Rx Prednisone [predniSONE 10 mg 10 mg PO .TAPER #1 tab.ds.pk 08/30/20 Unknown Rx (6-Day Pack, 21 Tabs)] guaiFENesin ER [Mucinex ER] 600 mg PO BID #14 tablet.er 08/30/20 Unknown Rx ED Physical Exam - General Limitations: No Limitations General appearance: alert, in no apparent distress - Head Head exam: Present: atraumatic, normocephalic - Eye Eye exam: Present: normal appearance - ENT ENT exam: Present: normal orophraynx, mucous membranes moist, TM's normal bilaterally, normal external ear exam - Respiratory Respiratory exam: Present: normal lung sounds bilaterally. Absent: respiratory distress, wheezes, rales, rhonchi, stridor, chest wall tenderness, accessory muscle use, decreased breath sounds, prolonged expiratory - Cardiovascular Cardiovascular Exam: Present: regular rate, normal rhythm, normal heart sounds. Absent: systolic murmur, diastolic murmur, rubs, gallop - Neurological Exam Neurological exam: Present: alert, oriented X3 - Psychiatric Psychiatric exam: Present: normal affect, normal mood - Skin Skin exam: Present: warm, dry, intact ED Course Vital Signs 08/30/20 17:16 Temperature 98.5 F Pulse Rate 84 Respiratory 20 Rate Blood Pressure 137/84 [Right] O2 Sat by Pulse 99 Oximetry ED Medical Decision Making - Radiology Data Radiology results: report reviewed Ordering Physician: MARILYN MAE Date of Service: 08/30/20 Procedure(s): XR chest routine 2V Accession Number(s): [id number] cc: MARILYN MAE Fluoro Time In Minutes: CHEST 2 VIEWS INDICATION / CLINICAL INFORMATION: cough. COMPARISON: 03/14/2019 FINDINGS: SUPPORT DEVICES: None. HEART / MEDIASTINUM: No significant abnormality. LUNGS / PLEURA: No significant pulmonary or pleural abnormality. No pneu mothorax. ADDITIONAL FINDINGS: There is stable elevation of the left hemidiaphragm. IMPRESSION: 1. No acute findings. Signer Name: Vamsi Galan MD Signed: 08/30/2020 5:40 PM Workstation Name: [id number] Transcribed By: KRISTINE Dictated By: Vamsi Galan MD Electronically Authenticated By: Vamsi Galan MD Signed Date/Time: 08/30/201739 DD/ 39 TD/TT: - Medical Decision Making Patient is a 50-year-old female presents emergency room complaints of URI symptoms that began on 08/21/2020. She has associated dry cough, congestion, chest discomfort after coughing. She denies any fever, nausea, vomiting, diarrhea, sore throat, ear pain, shortness of breath, abdominal pain. She states that she did have a sick contact who had been diagnosed with a cold and ear infection. She denies any recent travel. She states that she has received 2 COVID-19 vaccines. vss. on exam: Breath sounds are clear bilaterally, no wheezing, no rales, no rhonchi, no respiratory chest, no accessory muscle use. Chest x-ray: 1. No acute findings. Symptoms and examination likely related to upper respiratory infection versus acute bronchitis, given that symptoms have been ongoing for almost 10 days, patient will be covered with antibiotics. Patient given prescription for medications. Advised patient Please take medication as prescribed. Increase your fluid intake. Follow-up with a primary care doctor for reexamination. Return to emergency room for any new or worsening symptoms. Critical care attestation.: If time is entered above; I have spent that time in minutes in the direct care of this critically ill patient, excluding procedure time. ED Disposition Clinical Impression: Acute bronchitis Qualifiers: Bronchitis organism: unspecified organism Qualified Code(s): J20.9 - Acute bronchitis, unspecified Disposition: -01 TO HOME OR SELFCARE Is pt being admited?: No Does the pt Need Aspirin: No Condition: Stable Instructions: Acute Bronchitis, Adult, Acute Bronchitis (ED) Additional Instructions: Please take medication as prescribed. Increase your fluid intake. Follow-up with a primary care doctor for reexamination. Return to emergency room for any new or worsening symptoms. Your chest x-ray is within normal limits, no signs of pneumonia Prescriptions: guaiFENesin ER [Mucinex ER] 600 mg PO BID #14 tablet.er Prednisone [predniSONE 10 mg (6-Day Pack, 21 Tabs)] 10 mg PO .TAPER #1 tab.ds.pk Benzonatate [Tessalon Perles] 100 mg PO Q8HR PRN #12 capsule PRN Reason: cough Azithromycin [Zithromax TAB] 250 mg PO QDAY 5 Days #6 tablet Referrals: [facility] [Provider Group] - 2-3 Days MAGY NESS MD [Staff Physician] - 2-3 Days Time of Disposition: 17:56 Print Language: LUX[place]
== END 2020-08-30 18:30 | disposition home or self-care (01) ==
LOC: ED 16:56
DX: J20.9 Acute bronchitis, unspecified (principal); G43.909 Migraine, unspecified, not intractable, without status migrainosus; F32.9 Major depressive disorder, single episode, unspecified; Z98.890 Other specified postprocedural states; Z79.899 Other long term (current) drug therapy
CPT/HCPCS: 71046; 99283

== ENCOUNTER 2020-09-20 16:11 | Emergency (ER) | payer SELFPAY ==
[2020-09-20] MEDS ORDERED: KETOROLAC 30 MG/1 ML INJ IM ONE (18:07)
--- NOTE | 2020-09-20 18:07 | Emergency Department Report ---
<CLARISSA PAL - Last Filed: 09/20/20 21:06> ED Back Pain/Injury HPI - General Chief Complaint: Abdominal Pain Stated Complaint: BACK PAIN KIDNEY INF Time Seen by Provider: 09/20/20 18:02 Source: patient Limitations: No Limitations - History of Present Illness Initial Comments: 50-year-old female who reports no significant past medical history presents to the ER today with complaints of left lower back pain. Patient states that she has been having this back pain for the past couple months. She denies pain constant but waxes and wanes. She states that the pain is worse with certain positions and certain movements. She denies any radiation of the pain. She denies any bowel or bladder incontinence. She denies lower extremity weakness, numbness or tingling or any saddle anesthesia. She states that she was seen here for similar back pain about 1 month ago. She was prescribed 800 mg ibuprofen which was helping the pain but she ran out. She states that she has not been able to follow-up with the orthospine specialist, because she has to call to find out if insurance will cover the visit. Patient admits that she used to live in [place], and she did see orthopedic commercial credit specialist while living in [place] and had an MRI of her spine in February 2020. She states that she was told that she has arthritis. She states that the doctor recommended given her a "shot" in her spine but at the time she was moving here. Patient's also states that she is concerned she may have a UTI. She states that today she started with urinary frequency, and dysuria and urinary hesitancy. She denies any urinary odor or hematuria. She denies any pelvic or abdominal pain. She denies any nausea, vomiting, fever or chills. Complaint: back pain -: month(s) (2) Similar Symptoms Previously: Yes - Related Data Previous Rx's Medication Instructions Recorded Last Taken Type Ibuprofen [Motrin] 800 mg PO Q8HR PRN #20 tablet 09/20/20 Unknown Rx Sulfamethoxazole/Trimethoprim 1 each PO BID #14 tablet 09/20/20 Unknown Rx [Bactrim DS TAB] methOCARBAMOL [Robaxin TAB] 500 mg PO Q8H PRN #30 tablet 09/20/20 Unknown Rx Allergies Allergy/AdvReac Type Severity Reaction Status Date / Time naproxen [From Naprosyn] Allergy Rash Verified 09/20/20 17:40 ED Review of Systems Comment: All other systems reviewed and negative Constitutional: denies: chills, fever Eyes: denies: eye pain, eye discharge, vision change ENT: denies: ear pain, throat pain, dental pain, hearing loss, epistaxis, congestion Respiratory: denies: cough, shortness of breath, SOB with exertion, SOB at rest, wheezing Cardiovascular: denies: chest pain, palpitations, dyspnea on exertion, edema, syncope, paroxysmal nocturnal dyspnea Gastrointestinal: denies: abdominal pain, nausea, diarrhea, constipation, hematemesis, hematochezia Genitourinary: dysuria, frequency. denies: urgency, hematuria, discharge, abnormal menses, dyspareunia Musculoskeletal: back pain. denies: joint swelling, arthralgia, myalgia Skin: denies: rash, lesions, change in color, change in hair/nails, pruritus Neurological: denies: headache, weakness, numbness, paresthesias, confusion, abnormal gait, vertigo Psychiatric: denies: anxiety, depression, auditory hallucinations, visual hallucinations, homicidal thoughts, suicidal thoughts Hematological/Lymphatic: denies: easy bleeding, easy bruising, swollen glands ED Past Medical Hx - Past Medical History Hx Headaches / Migraines: Yes Hx Psychiatric Treatment: Yes (depression) Additional medical history: Lower back pain with radiation - Surgical History Additional Surgical History: Hardware in right leg and ankle. right knee surgery. TUBAL LIGATION - Social History Substance Use Type: Prescribed - Medications Home Medications: Home Medications Medication Instructions Recorded Confirmed Last Taken Type Ibuprofen [Motrin] 800 mg PO Q8HR PRN #20 tablet 09/20/20 Unknown Rx Sulfamethoxazole/Trimethoprim 1 each PO BID #14 tablet 09/20/20 Unknown Rx [Bactrim DS TAB] methOCARBAMOL [Robaxin TAB] 500 mg PO Q8H PRN #30 tablet 09/20/20 Unknown Rx ED Physical Exam - General Limitations: No Limitations General appearance: alert, in no apparent distress - Head Head exam: Present: atraumatic, normocephalic, normal inspection - Eye Eye exam: Present: normal appearance, PERRL, EOMI Pupils: Present: normal accommodation - Neck Neck exam: Present: normal inspection, full ROM - Respiratory Respiratory exam: Present: normal lung sounds bilaterally. Absent: respiratory distress - Cardiovascular Cardiovascular Exam: Present: regular rate, normal rhythm, normal heart sounds - GI/Abdominal GI/Abdominal exam: Present: soft. Absent: distended, tenderness, guarding, rebound - Back Exam Back exam: Present: normal inspection, full ROM. Absent: CVA tenderness (R), CVA tenderness (L) - Expanded Back Exam Expanded 1 - Soft tissue/muscle tenderness. No vertebral point tenderness. No rash, swelling, deformity, step-off or erythema noted - Neurological Exam Neurological exam: Present: alert, oriented X3, CN II-XII intact, normal gait. Absent: motor sensory deficit - Psychiatric Psychiatric exam: Present: normal affect, normal mood - Skin Skin exam: Present: intact ED Medical Decision Making - Medical Decision Making Urinalysis is concerning for UTI. Urine culture is pending. Patient complains of left low back pain that she has been having for 2 months, but also sounds like this is likely chronic as she was seen orthospine specialist back in [place] and had an MRI of the lumbar spine. Her history, physical exam, and current condition does not suggest cauda equina, epidural abscess or hematoma, aortic dissection, kidney stone, pyelonephritis, or any other emergent conditions warranting additional testing, admission, transfer or specialist consult at this time. Discussed urinalysis results with patient. She will be started on antibiotics. She will also be given a prescription for ibuprofen and muscle relaxers. She was given referral to local orthospine specialist and recommend that she follows up with them. Patient overall is nontoxic, not ill-appearing and not in any acute distress. She is neurologically intact and has a normal gait in the ER. Her vital signs are stable. She expresses understanding of all instructions and agree with plan. Patient was stable at time of discharge. ED Disposition Clinical Impression: Chronic low back pain, UTI (urinary tract infection) Disposition: TO HOME OR SELFCARE Is pt being admited?: No Does the pt Need Aspirin: No Condition: Stable Instructions: Urinary Tract Infection, Adult, [id number], Chronic Back Pain, [id number], Abdominal Pain (ED) Additional Instructions: Take the ibuprofen and the muscle relaxer and the Bactrim as prescribed. Recommend that you follow-up with primary care doctor but also one of the orthospine specialist on the list given to you. Return to the ER if your s ymptoms changes or worsens in any way. Prescriptions: Sulfamethoxazole/Trimethoprim [Bactrim DS TAB] 1 each PO BID #14 tablet Ibuprofen [Motrin] 800 mg PO Q8HR PRN #20 tablet PRN Reason: pain methOCARBAMOL [Robaxin TAB] 500 mg PO Q8H PRN #30 tablet PRN Reason: Muscle Spasm Referrals: [facility] [Provider Group] - 3-5 Days Forms: Work/School Release Form(ED) Time of Disposition: 19:23 <MALAIKA TORRES - Last Filed: 09/21/20 15:49> ED Review of Systems ROS: Stated complaint: BACK PAIN KIDNEY INF Other details as noted in HPI ED Course Vital Signs 09/20/20 09/20/20 17:41 19:37 Temperature 98.9 F 99.0 F Pulse Rate 78 72 Respiratory 16 18 Rate Blood Pressure 125/82 Blood Pressure 132/79 [Right] O2 Sat by Pulse 100 99 Oximetry Critical care attestation.: If time is entered above; I have spent that time in minutes in the direct care of this critically ill patient, excluding procedure time. ED Disposition Is pt being admited?: No
[2020-09-20 18:38] LABS: Bilirubin,Urine NEG (Negative); Blood,Urine NEG (Negative); Color,Urine Yellow (Yellow); Mucus,Urine FEW /HPF; Protein,Urine <15 mg/dL mg/dL (Negative); Urobilinogen,Urine < 2.0 mg/dL (<2.0)
[2020-09-20 18:50] LABS: HCG Qualitative,Urine Negative (Negative)
[2020-09-20 19:38] VITALS: BP 132/79
== END 2020-09-20 19:38 | disposition home or self-care (01) ==
LOC: ED 16:11
DX: N39.0 Urinary tract infection, site not specified (principal); M54.5 Low back pain; G89.29 Other chronic pain; G43.909 Migraine, unspecified, not intractable, without status migrainosus; F32.9 Major depressive disorder, single episode, unspecified
CPT/HCPCS: 81001; 81025; 87086; 96372; 99283; J1885